=== PATIENT | female | born 1990 | race Caucasian/White ===

== ENCOUNTER 2022-01-04 05:04 | Emergency (ER) | payer SELFPAY ==
[2022-01-04 05:20] VITALS: BP 168/115
[2022-01-04] MEDS ORDERED: PERCOCET TABLET 5/325MG PO STA ×2 (05:22→05:23)
[2022-01-04] MEDS ORDERED: KEFLEX 500 MG PO ONE (05:22)
--- NOTE | 2022-01-04 05:22 | ERPHSYRPT ---
- History of Present Illness Time Seen by Provider: 01/04/22 05:15 Source: patient Exam Limitations: no limitations Physician History: This is a 31-year-old white female who dental pain in the left lower molars. Mastication worsens the pain. She has been feeling mild pain up until late last night and this morning when the pain worsened despite the use of ibuprofen. Patient states that she has symptoms unpleasant side effects with Augmentin. She can take Keflex without any problems. She has not contacted a dentist yet. Timing/Duration: gradual onset, weeks (Over 1 week) Severity: moderate ENT Location: dental Prearrival Treatment: over the counter meds Modifying Factors: Improves With: activity Associated Symptoms: tooth pain Allergies/Adverse Reactions: amoxicillin [From Augmentin] Allergy (Severe, Verified 01/04/22 05:21) Swelling clavulanic acid [From Augmentin] Allergy (Severe, Verified 01/04/22 05:21) Swelling Hx Tetanus, Diphtheria Vaccination/Date Given: No Hx Influenza Vaccination/Date Given: No Hx Pneumococcal Vaccination/Date Given: No Travel Risk - International Travel Have you traveled outside of the country in past 3 weeks: No - Coronavirus Screening Are you exhibiting any of the following symptoms?: No Close contact with a COVID-19 positive Pt in past 14-21 Days: No - Review of Systems Constitutional: No Symptoms Eyes: No Symptoms Ears, Nose, & Throat: Other (Dental pain left lower molars) Respiratory: No Symptoms Cardiac: No Symptoms Abdominal/Gastrointestinal: No Symptoms Genitourinary Symptoms: No Symptoms Musculoskeletal: No Symptoms Skin: No Symptoms Neurological: No Symptoms Psychological: No Symptoms Endocrine: No Symptoms Hematologic/Lymphatic: No Symptoms Immunological/Allergic: No Symptoms All Other Systems: Reviewed and Negative - Past Medical History Pertinent Past Medical History: No Respiratory History: Pneumonia - Past Surgical History Past Surgical History: No - Social History Smoking Status: Never smoker Exposure to second hand smoke: No Drug Use: none Patient Lives Alone: No - Nursing Vital Signs Nursing Vital Signs: Initial Vital Signs Temperature 98.7 F 01/04/22 05:10 Pulse Rate 80 01/04/22 05:10 Respiratory Rate 16 01/04/22 05:10 Blood Pressure 168/115 01/04/22 05:10 O2 Sat by Pulse Oximetry 94 L 01/04/22 05:10 Pain Scale Pain Intensity 8 - Physical Exam General Appearance: no apparent distress, alert, anxiety Eye Exam: bilateral eye: normal inspection, PERRL, EOMI Ear Exam: bilateral ear: auricle normal Nasal Exam: normal inspection Throat Exam: dental tenderness (Left lower molars with dental caries present), moist mucus membranes Neck Exam: normal inspection, non-tender, supple, full range of motion Cardiovascular/Respiratory Exam: chest non-tender, no respiratory distress Abdominal Exam: non-tender Neurologic Exam: alert, oriented x 3, cooperative, meat dresser II-XII nml as tested, normal mood/affect, nml cerebellar function, nml station & gait, sensation nml Skin Exam: normal color, warm, dry SpO2 Interpretation: normal O2 Delivery: Room Air - Course Nursing assessment & vital signs reviewed: Yes Ordered Tests: Medication Summary Discontinued Medications Generic Name Dose Route Start Last Admin Trade Name Freq PRN Reason Stop Dose Admin Cephalexin HCl 500 mg 01/04/22 05:22 Cephalexin Mh500 Mg Capsule PO 01/04/22 05:23 STAT ONE Oxycodone/Acetaminophen 1 tab 01/04/22 05:22 Oxycodone Hcl/Apap 5 Mg/325 Mg Tablet PO 01/04/22 05:23 STAT STA - Progress Progress: unchanged Counseled pt/family regarding: diagnosis, need for follow-up - Departure Departure Disposition: Home Clinical Impression: Pain due to dental caries Condition: Stable Critical Care Time: No Referrals: ARCHANA CARRERO [Primary Care Provider] - Follow up/PCP as directed Additional Instructions: Take the antibiotics as prescribed. Follow-up with a dentist today by phone to make arranges for follow-up appointment and definitive care. Continue ibuprofen 600 mg orally with food 3 times a day for the next 5 days. Prescriptions: Cephalexin Mh 500 mg [Keflex 500 mg] 500 mg PO TID #21 cap
[2022-01-04] MEDS ORDERED: PERCOCET TABLET 5/325MG ONE (05:24)
[2022-01-04] MEDS ORDERED: KEFLEX 500 MG ONE (05:24)
[2022-01-04 06:00] VITALS: PULSE 64; O2SAT 98
== END 2022-01-04 05:58 | disposition home or self-care (01) ==
LOC: ED 05:04
DX: K02.9 Dental caries, unspecified (principal); K08.89 Other specified disorders of teeth and supporting structures
CPT/HCPCS: 99282; A9270-GY

== ENCOUNTER 2024-08-15 17:58 | Observation (INO) | payer OTHER ==
--- NOTE | 2024-08-15 18:30 | ERPHSYRPT ---
- History of Present Illness Time Seen by Provider: 08/15/24 18:00 Historian: patient Exam Limitations: no limitations Patient Subjective Stated Complaint: pt c/o of upper abdominal pain just below bilateral breasts, N&V for 4 days Triage Nursing Assessment: Pt brought to the ER by her , hypertensive, rates pain as 3/10 at this time, pulses normal, skin flushed and warm, denies diarrhea, N&V, no SOB, doesn't appear to be in any distress Physician History: 34 years old female presented in the ER with complaints of bilateral upper abdominal/epigastric pain for the last 3 to 4 days with associated nausea and multiple episodes of nonprojectile, nonbilious vomiting without hematemesis. Patient reports pain gets worse with oral intake and is unable to hold much down. Does report history of GERD symptoms and takes Tums but not any prescription. Denies any chest pain palpitations or shortness of breath. No fever or chills reported. No diarrhea or constipation. Patient currently reports 6/10 intensity pain. Allergies/Adverse Reactions: No Known Drug Allergies Allergy (Verified 08/15/24 18:09) Home Medications: Fluoxetine HCl [Prozac] 40 mg PO DAILY 08/15/24 [History] Hx Tetanus, Diphtheria Vaccination/Date Given: No Hx Influenza Vaccination/Date Given: No Hx Pneumococcal Vaccination/Date Given: No Travel Risk - International Travel Have you traveled outside of the country in past 3 weeks: No - Emerging Infectious Disease Are you exhibiting symptoms associated with any current EIDs: Yes Symptoms: Vomitting - Review of Systems Constitutional: No Symptoms Ears, Nose, & Throat: No Symptoms Respiratory: No Symptoms Cardiac: No Symptoms Abdominal/Gastrointestinal: Abdominal Pain, Nausea, Vomiting Genitourinary Symptoms: No Symptoms Musculoskeletal: No Symptoms Skin: No Symptoms Neurological: No Symptoms Endocrine: No Symptoms Hematologic/Lymphatic: No Symptoms Immunological/Allergic: No Symptoms - Past Medical History Pertinent Past Medical History: Yes Neurological History: Migraines Respiratory History: Pneumonia - Past Surgical History Past Surgical History: No - Female History Hx Last Menstrual Period: 05/19/12 Hx Now: No ( vasectomy) - Social History Smoking Status: Never smoker Exposure to second hand smoke: No Drug Use: none - Social Determinants of Health Will the patient participate in the screening: Yes Do you worry about a steady place to live?: No Do you have any problems with any of the following?: No known problems In the past 12 months,have you had to go without utilities?: No Transportation Issues: No Has anyone in your support network made you feel unsafe?: No Have you or anyone in your house had to go w/o enough food: No - Nursing Vital Signs Nursing Vital Signs: Initial Vital Signs Pulse Rate 104 H 08/15/24 18:00 Respiratory Rate 18 08/15/24 18:00 Blood Pressure 189/131 08/15/24 18:00 O2 Sat by Pulse Oximetry 99 08/15/24 18:00 Pain Scale Pain Intensity 3 - Physical Exam General Appearance: no apparent distress Eye Exam: PERRL/EOMI Ears, Nose, Throat Exam: normal ENT inspection Neck Exam: normal inspection, full range of motion Respiratory Exam: normal breath sounds, lungs clear Cardiovascular Exam: regular rate/rhythm, normal heart sounds Gastrointestinal/Abdomen Exam: soft, normal bowel sounds, tenderness (Epigastric/periumbilical area), No guarding, No rebound Back Exam: normal inspection, normal range of motion Extremity Exam: normal inspection, normal range of motion Neurologic Exam: alert, oriented x 3, cooperative Skin Exam: normal color SpO2 Interpretation: normal SpO2: 97 O2 Delivery: Room Air - Course EKG Interpreted by Me: RATE (89), Sinus Rhythm, NORMAL AXIS, NORMAL INTERVALS, Non-specific ST Changes Ordered Tests: Active Orders 24 hr Category Date Time Status EKG-ER Only STAT Care 08/15/24 18:22 Active IV Insertion STAT Care 08/15/24 18:22 Active NPO (ED) STAT Care 08/15/24 18:22 Active Telemetry q4h Care 08/15/24 19:58 Active ABDOMEN AND PELVIS W/0 CONTRAS [CT] Stat Exams 08/15/24 18:23 Taken CBC W DIFF Stat Lab 08/15/24 18:15 Completed CMP Stat Lab 08/15/24 18:15 Completed CULTURE,URINE Stat Lab 08/15/24 19:42 Received Calcium, Ionized Stat Lab 08/15/24 19:32 Completed HCG QUALITATIVE, SERUM Stat Lab 08/15/24 18:15 Completed LIPASE Stat Lab 08/15/24 18:15 Completed Lactic Acid Stat Lab 08/15/24 18:22 Completed MAG [MAGNESIUM] Stat Lab 08/15/24 19:58 Completed TROPONIN Q4H Lab 08/15/24 18:15 Completed TROPONIN Q4H Lab 08/15/24 22:30 Ordered TROPONIN Q4H Lab 08/16/24 02:30 Ordered UA W/RFX UR CULTURE Stat Lab 08/15/24 19:42 Completed Transfer Order Routine Transfer 08/15/24 Ordered Medication Summary Generic Name Dose Route Start Last Admin Trade Name Yefri PRN Reason Stop Dose Admin Potassium Chloride 20 meq in 100 mls @ 50 mls/hr 08/15/24 19:58 08/15/24 20:00 Potassium Chloride 20 Meq In Water 100ml IV 08/15/24 21:57 50 mls/hr STAT ONE Administration Discontinued Medications Generic Name Dose Route Start Last Admin Trade Name Freq PRN Reason Stop Dose Admin Fentanyl Citrate 50 mcg 08/15/24 18:22 08/15/24 18:44 Fentanyl Citrate 100 Mcg/2 Ml* Vial IV 08/15/24 18:23 50 mcg STAT ONE Administration Fentanyl Citrate Confirm 08/15/24 18:38 Fentanyl Citrate 100 Mcg/2 Ml* Vial Administered 08/15/24 18:39 Dose 100 mcg .ROUTE .STK-MED ONE Sodium Chloride 1,000 mls @ 999 mls/hr 08/15/24 18:22 08/15/24 19:45 Sodium Chloride 0.9% 1000 Ml IV 08/15/24 19:22 Infused .Q1H1M STA Infusion Sodium Chloride Confirm 08/15/24 18:39 Sodium Chloride 0.9% 1000 Ml Administered 08/15/24 18:40 Dose 1,000 mls @ ud .ROUTE .STK-MED ONE Sodium Chloride 1,000 mls @ 999 mls/hr 08/15/24 19:30 08/15/24 20:01 Sodium Chloride 0.9% 1000 Ml IV 08/15/24 20:30 999 mls/hr .Q1H1M STA Administration Sodium Chloride Confirm 08/15/24 19:35 Sodium Chloride 0.9% 1000 Ml Administered 08/15/24 19:36 Dose 1,000 mls @ ud .ROUTE .STK-MED ONE Potassium Chloride Confirm 08/15/24 20:00 Potassium Chloride 20 Meq In Water 100ml Administered 08/15/24 20:01 Dose 100 mls @ ud IV .STK-MED ONE Ondansetron HCl 4 mg 08/15/24 18:22 08/15/24 18:43 Ondansetron Hcl 4 Mg/2 Ml Vial IV 08/15/24 18:23 4 mg STAT ONE Administration Ondansetron HCl Confirm 08/15/24 18:38 Ondansetron Hcl 4 Mg/2 Ml Vial Administered 08/15/24 18:39 Dose 4 mg .ROUTE .STK-MED ONE Pantoprazole Sodium 40 mg 08/15/24 18:22 08/15/24 18:43 Pantoprazole 40 Mg Vial IV 08/15/24 18:23 40 mg STAT ONE Administration Pantoprazole Sodium Confirm 08/15/24 18:38 Pantoprazole 40 Mg Vial Administered 08/15/24 18:39 Dose 40 mg IV .STK-MED ONE Lab/Rad Data: Laboratory Result Diagrams 08/15/24 18:15 08/15/24 18:15 Laboratory Results 08/15/24 08/15/24 08/15/24 Range/Units 19:58 19:42 19:32 WBC (3.98-10.04) x10^3/uL RBC (3.93-5.22) x10^6/uL Hgb (11.2-15.7) g/dL Hct (34.1-44.9) % MCV (79.4-94.8) fL MCH (25.6-32.2) pg MCHC (32.2-35.5) g/dL RDW (11.7-14.4) % Plt Count (182-369) x10^3/uL MPV (9.4-12.3) fL Gran % (34.0-71.1) % Immature Gran % (Auto) (0.001-0.429) % Nucleat RBC Rel Count (0.00-0.2) % Eos # (Auto) (0.04-0.36) x10^3/uL Immature Gran # (Auto) (0.001-0.031) x10^3u/L Absolute Lymphs (auto) (1.18-3.74) x10^3/uL Absolute Monos (auto) (0.24-0.86) x10^3/uL Absolute Nucleated RBC (0.00-0.012) x10^3u/L Lymphocytes % (19.3-51.7) % Monocytes % (4.7-12.5) % Eosinophils % (0.7-5.8) % Basophils % (0.1-1.2) % Absolute Granulocytes (1.56-6.13) x10^3/uL Basophils # (0.01-0.08) x10^3/uL Ionized Calcium 1.87 H* (1.12-1.32) mmol/L Sodium (135-145) mmol/L Potassium (3.5-5.1) mmol/L Chloride (98-107) mmol/L Carbon Dioxide (22-30) mmol/L Anion Gap (5-15) MEQ/L BUN (7-17) mg/dL Creatinine (0.52-1.04) mg/dL Estimated GFR ML/MIN Glucose (74-106) mg/dL Lactic Acid (0.4-2.0) Calcium (8.4-10.2) mg/dL Magnesium 1.7 (1.6-2.3) mg/dL Total Bilirubin (0.2-1.3) mg/dL AST (14-36) U/L ALT (0-35) U/L Alkaline Phosphatase (38-126) U/L Troponin I (0.000-0.033) ng/mL Serum Total Protein (6.3-8.2) g/dL Albumin (3.5-5.0) g/dL Lipase (23-300) U/L Serum HCG, Qual (NEGATIVE) Urine Color Yellow (Yellow) Urine Appearance Cloudy A (Clear) Urine pH 8.5 A (4.6-8.0) Ur Specific [place] 1.010 (1.005-1.030) Urine Protein Trace A (Negative) Urine Glucose (UA) Negative (Negative) mg/dL Urine Ketones Negative (Negative) Urine Blood Negative (Negative) Urine Nitrite Negative (Negative) Urine Bilirubin Negative (Negative) Urine Urobilinogen 0.2 (0.2) mg/dL Ur Leukocyte Esterase Moderate A (Negative) U Hyaline Cast (Auto) NONE SEEN (0-2) /LPF Urine Microscopic RBC NONE SEEN (0-5) /HPF Urine Microscopic WBC 3-5 (0-5) /HPF Ur Epithelial Cells Moderate A (None Seen) /HPF Urine Bacteria Few A (None Seen) /HPF Ur Yeast w Hyphae Few A (None Seen) /HPF Urine Culture Reflexed YES (NO) 05/15/25 05/15/25 05/15/25 Range/Units 18:22 18:15 18:15 WBC (3.98-10.04) x10^3/uL RBC (3.93-5.22) x10^6/uL Hgb (11.2-15.7) g/dL Hct (34.1-44.9) % MCV (79.4-94.8) fL MCH (25.6-32.2) pg MCHC (32.2-35.5) g/dL RDW (11.7-14.4) % Plt Count (182-369) x10^3/uL MPV (9.4-12.3) fL Gran % (34.0-71.1) % Immature Gran % (Auto) (0.001-0.429) % Nucleat RBC Rel Count (0.00-0.2) % Eos # (Auto) (0.04-0.36) x10^3/uL Immature Gran # (Auto) (0.001-0.031) x10^3u/L Absolute Lymphs (auto) (1.18-3.74) x10^3/uL Absolute Monos (auto) (0.24-0.86) x10^3/uL Absolute Nucleated RBC (0.00-0.012) x10^3u/L Lymphocytes % (19.3-51.7) % Monocytes % (4.7-12.5) % Eosinophils % (0.7-5.8) % Basophils % (0.1-1.2) % Absolute Granulocytes (1.56-6.13) x10^3/uL Basophils # (0.01-0.08) x10^3/uL Ionized Calcium (1.12-1.32) mmol/L Sodium (135-145) mmol/L Potassium (3.5-5.1) mmol/L Chloride (98-107) mmol/L Carbon Dioxide (22-30) mmol/L Anion Gap (5-15) MEQ/L BUN (7-17) mg/dL Creatinine (0.52-1.04) mg/dL Estimated GFR ML/MIN Glucose (74-106) mg/dL Lactic Acid 1.3 (0.4-2.0) Calcium (8.4-10.2) mg/dL Magnesium (1.6-2.3) mg/dL Total Bilirubin (0.2-1.3) mg/dL AST (14-36) U/L ALT (0-35) U/L Alkaline Phosphatase (38-126) U/L Troponin I 0.043 H* (0.000-0.033) ng/mL Serum Total Protein (6.3-8.2) g/dL Albumin (3.5-5.0) g/dL Lipase (23-300) U/L Serum HCG, Qual NEGATIVE (NEGATIVE) Urine Color (Yellow) Urine Appearance (Clear) Urine pH (4.6-8.0) Ur Specific [place] (1.005-1.030) Urine Protein (Negative) Urine Glucose (UA) (Negative) mg/dL Urine Ketones (Negative) Urine Blood (Negative) Urine Nitrite (Negative) Urine Bilirubin (Negative) Urine Urobilinogen (0.2) mg/dL Ur Leukocyte Esterase (Negative) U Hyaline Cast (Auto) (0-2) /LPF Urine Microscopic RBC (0-5) /HPF Urine Microscopic WBC (0-5) /HPF Ur Epithelial Cells (None Seen) /HPF Urine Bacteria (None Seen) /HPF Ur Yeast w Hyphae (None Seen) /HPF Urine Culture Reflexed (NO) 08/15/24 08/15/24 Range/Units 18:15 18:15 WBC 13.1 H (3.98-10.04) x10^3/uL RBC 4.23 (3.93-5.22) x10^6/uL Hgb 11.0 L (11.2-15.7) g/dL Hct 33.3 L (34.1-44.9) % MCV 78.7 L (79.4-94.8) fL MCH 26.0 (25.6-32.2) pg MCHC 33.0 (32.2-35.5) g/dL RDW 12.3 (11.7-14.4) % Plt Count 546 H (182-369) x10^3/uL MPV 8.9 L (9.4-12.3) fL Gran % 67.1 (34.0-71.1) % Immature Gran % (Auto) 0.4 (0.001-0.429) % Nucleat RBC Rel Count 0.0 (0.00-0.2) % Eos # (Auto) 0.23 (0.04-0.36) x10^3/uL Immature Gran # (Auto) 0.05 H (0.001-0.031) x10^3u/L Absolute Lymphs (auto) 2.37 (1.18-3.74) x10^3/uL Absolute Monos (auto) 1.59 H (0.24-0.86) x10^3/uL Absolute Nucleated RBC 0.00 (0.00-0.012) x10^3u/L Lymphocytes % 18.1 L (19.3-51.7) % Monocytes % 12.1 (4.7-12.5) % Eosinophils % 1.8 (0.7-5.8) % Basophils % 0.5 (0.1-1.2) % Absolute Granulocytes 8.79 H (1.56-6.13) x10^3/uL Basophils # 0.07 (0.01-0.08) x10^3/uL Ionized Calcium (1.12-1.32) mmol/L Sodium 135 (135-145) mmol/L Potassium 3.0 L* (3.5-5.1) mmol/L Chloride 95 L (98-107) mmol/L Carbon Dioxide 30 (22-30) mmol/L Anion Gap 13.6 (5-15) MEQ/L BUN 28 H (7-17) mg/dL Creatinine 2.55 H (0.52-1.04) mg/dL Estimated GFR 24.4 ML/MIN Glucose 117 H (74-106) mg/dL Lactic Acid (0.4-2.0) Calcium 15.3 H* (8.4-10.2) mg/dL Magnesium (1.6-2.3) mg/dL Total Bilirubin 0.20 (0.2-1.3) mg/dL AST 29 (14-36) U/L ALT 27 (0-35) U/L Alkaline Phosphatase 97 (38-126) U/L Troponin I (0.000-0.033) ng/mL Serum Total Protein 7.1 (6.3-8.2) g/dL Albumin 4.2 (3.5-5.0) g/dL Lipase 136 (23-300) U/L Serum HCG, Qual (NEGATIVE) Urine Color (Yellow) Urine Appearance (Clear) Urine pH (4.6-8.0) Ur Specific [place] (1.005-1.030) Urine Protein (Negative) Urine Glucose (UA) (Negative) mg/dL Urine Ketones (Negative) Urine Blood (Negative) Urine Nitrite (Negative) Urine Bilirubin (Negative) Urine Urobilinogen (0.2) mg/dL Ur Leukocyte Esterase (Negative) U Hyaline Cast (Auto) (0-2) /LPF Urine Microscopic RBC (0-5) /HPF Urine Microscopic WBC (0-5) /HPF Ur Epithelial Cells (None Seen) /HPF Urine Bacteria (None Seen) /HPF Ur Yeast w Hyphae (None Seen) /HPF Urine Culture Reflexed (NO) - Progress Progress: improved Progress Note: 08/15/24 20:24 Differential diagnoses include but not limited to: GERD with esophagitis, ACS, atypical chest pain, gastric ulcers, viscus perforation, intestinal obstruction, pancreatitis, cholecystitis, dehydration, renal failure, acute electrolyte derangement etc. 34 years old is evaluated in the ER for upper abdominal pain with nausea vomiting for last 4 days. Patient has history of GERD symptoms and takes Tums. She is given fluids and symptomatic treatment along with Protonix, on reevaluation she is feeling much better. No vomiting while in here. She has no chest pain palpitations or shortness of breath. EKG is sinus rhythm with no acute ST elevations. Workup showed white count of 13, chemistries with acute renal failure creatinine of 2.5, calcium of 15 and potassium of 3.0. I believe patient's hypercalcemia is secondary to excessive Tums intake which patient admits to taking to every 2 hour for quite some time and hypercalcemia with vomiting/dehydration is causing renal failure. She is started on potassium replacement as well. Normal lipase and liver enzymes. I do not think patient needs bisphosphonates for hypercalcemia and especially with renal failure and will give a trial of fluids first and I hope it will improve both hypercalcemia and kidney functions. PTH is pending, ionized calcium is 1.8. Initial troponin of 0.043, patient has no chest pain and I believe it is secondary to renal failure. CT abdomen pelvis without contrast showed hiatal hernia, small stones in the kidney but no ureteral stones, moderate fecal load and no other acute intra- abdominal pelvic findings. Discussed with Dr. Irving, reviewed history, workup, agreed with admission. Shared the results of workup with patient and family and plan of admission which they understand and agree. Complexity of problems addressed: High acuity Complexity of data reviewed/analyzed: High/extensive Risk of complication: Moderate to high Discussed with DrCheyanen: Other (Dr. Irving hospitalist) Counseled pt/family regarding: lab results, diagnosis, need for follow-up, rad results Medical Desision Making - Independent Historian Additional History obtained from: Spouse - Discussion of managment Care discussed with:: hospitalist Reviewed:: Test results Agreed on:: Treatment plan, decision to admit Will see patient: in hospital - Diagnostic Testing Diagnostic test were ordered, analyzed, and reviewed by me: Yes Radiological Interpretation: Reviewed by me, Teleradiologist Report - Risk of complications The pt has a mod risk of morbidity or mortality based on: Need for prescription drug management The pt has a high risk of morbidity or mortality based on: Drug therapy requiring intensive monitoring for toxicity, Decision regarding hospitilization or escalation of hosp level of care - Departure Departure Disposition: In-patient Admission Clinical Impression: Acute renal failure (ARF), Hypercalcemia, GERD with esophagitis, Hypokalemia, Elevated troponin, Nausea & vomiting Condition: Stable Critical Care Time: Yes Critical Care Time(excluding separately billable procedures): Critical 30-74 mins Referrals: ARCHANA CARRERO [Primary Care Provider, [facility]] - Follow up/PCP as directed
[2024-08-15 18:31] LABS: Absolute Neutrophil Ct (ANC) 8.79 x10^3/uL (1.56-6.13); BASOPHIL % 0.5 % (0.1-1.2); Basophil (Absolute #) 0.07 x10^3/uL (0.01-0.08); Eosinophil % 1.8 % (0.7-5.8); Eosinophil (Absolute #) 0.23 x10^3/uL (0.04-0.36); Hematocrit 33.3 % (34.1-44.9); IMMATURE GRAN # 0.05 x10^3u/L (0.001-0.031); IMMATURE GRAN % 0.4 % (0.001-0.429); Lymphocyte (Absolute #) 2.37 x10^3/uL (1.18-3.74); Lymphocytes % 18.1 % (19.3-51.7); Mean Cell Volume 78.7 fL (79.4-94.8); Mean Platelet Volume 8.9 fL (9.4-12.3); Monocyte (Absolute #) 1.59 x10^3/uL (0.24-0.86); Monocytes % 12.1 % (4.7-12.5); Neutrophil % 67.1 % (34.0-71.1); Platelet Count 546 x10^3/uL (182-369); Red Blood Count 4.23 x10^6/uL (3.93-5.22); Red Cell Distribution Width 12.3 % (11.7-14.4); White Blood Count 13.1 x10^3/uL (3.98-10.04)
[2024-08-15] MEDS ORDERED: SUBLIMAZE 100 MCG/2 ML ONE (18:38)
[2024-08-15] MEDS ORDERED: Zofran 4 MG/2 ML VIAL ONE (18:38)
[2024-08-15] MEDS ORDERED: PROTONIX 40 MG IV IV ONE (18:38)
[2024-08-15] MEDS ORDERED: Sodium Chloride 0.9% 1000 ML 1,000 ML ONE ×2 (18:39→19:35)
[2024-08-15] MEDS: Sodium Chloride 0.9% 1000 ML 1,000 ML IV STA ×2 (18:43→20:01)
[2024-08-15] MEDS: Zofran 4 MG/2 ML VIAL IV ONE (18:43)
[2024-08-15] MEDS: PROTONIX 40 MG IV IV ONE (18:43)
[2024-08-15] MEDS: SUBLIMAZE 100 MCG/2 ML IV ONE (18:44)
[2024-08-15 18:45] LABS: HCG SERUM TEST NEGATIVE (NEGATIVE)
[2024-08-15 18:47] LABS: ALBUMIN 4.2 g/dL (3.5-5.0); ANION GAP 13.6 MEQ/L (5-15); BILIRUBIN,TOTAL 0.2 mg/dL (0.2-1.3); Creatinine 1 2.55 mg/dL (0.52-1.04); EST GLOMERULAR FILTRATION RATE 24.4 ML/MIN; Total Protein 7.1 g/dL (6.3-8.2)
[2024-08-15 19:02] LABS: Calcium 15.3 mg/dL (8.4-10.2)
[2024-08-15] MEDS ORDERED: POTASSIUM CHLORIDE 20 mEq IN WATER 100ML 100 ML IV ONE (20:00)
[2024-08-15] MEDS: POTASSIUM CHLORIDE 20 mEq IN WATER 100ML 20 MEQ/100 ML BAG IV ONE (20:00)
[2024-08-15 20:11] LABS: Appearance Cloudy (Clear); Bacteria Few /HPF (None Seen); Bilirubin Negative (Negative); Blood Negative (Negative); Epithelial Cells Moderate /HPF (None Seen); Glucose, Urine Negative (Negative); Hyaline Casts NONE SEEN /LPF (0-2); Hyphae Yeast Few /HPF (None Seen); Ketones Negative (Negative); Leukocyte Esterase Moderate (Negative); Nitrite Negative (Negative); Ph 8.5 (4.6-8.0); Protein,Urine Dip Trace (Negative); RBC NONE SEEN /HPF (0-5); Urobilinogen 0.2 mg/dL (0.2)
--- NOTE | 2024-08-15 20:57 | PCM.HP ---
History of Present Illness - Chief Complaint Chief Complaint: abdominal pain Date: 08/15/24 History of Present Illness: Ms. CORONA is a 34 year old female with a past medical history significant for depression and migraine headaches taking about 8 ibuprofen daily who presented to the hospital with complaints of abdominal pain for the past couple days below her diaphragm. She thought it was acid reflux and started taking about 12-14 TUMS daily. Her symptoms worsened and she was unable to keep anything down, developing some nausea and vomiting. Upon arrival, she was found to have a calcium of 15.3, bicarb 30 and creatinine 2.6. No previous history of CKD or hypercalcemia. No fever/chills, though her WBC count was slightly elevated. She is seen and evaluated in the ER where she is resting in bed, awake/alert, non- toxic. No chest pain or shortness of breath. No dysuria, hematuria or foamy/frothy urine. - Review of Systems Constitutional: No Fever, No Chills Eyes: No Double Vision Ears, Nose, & Throat: No Sinus Drainage Respiratory: No Cough, No Short Of Breath Cardiac: No Chest Pain, No Edema, No Palpitations Abdominal/Gastrointestinal: Abdominal Pain, Nausea, Vomiting Genitourinary Symptoms: No Dysuria, No Frequency, No Hematuria Musculoskeletal: No Arthralgias Skin: No Rash Neurological: Headache Psychological: Emotional Lability Endocrine: No Polyuria, No Polydipsia Hematologic/Lymphatic: No Easy Bleeding Medications & Allergies Home Medications: Home Medication List Fluoxetine HCl [Prozac] 40 mg PO DAILY 08/15/24 [History Confirmed 08/15/24] Allergies/Adverse Reactions: Allergies Allergy/AdvReac Type Severity Reaction Status Date / Time No Known Drug Allergies Allergy Verified 08/15/24 18:09 - Past Medical History Past Medical History: Yes Neurological History: Migraines Respiratory History: Pneumonia - Female History Hx Last Menstrual Period: 05/19/12 Are you now?: No ( vasectomy) - Past Surgical History Past Surgical History: No - Social History Smoking Status: Never smoker Exposure to second hand smoke: No Alcohol: Occasionally Drug Use: none - Social Determinants of Health Will the patient participate in the screening: Yes Do you worry about a steady place to live?: No Do you have any problems with any of the following?: No known problems In the past 12 months,have you had to go without utilities?: No Have you or anyone in your house had to go without enough: No Transportation Issues: No Has anyone in your support network made you feel unsafe?: No - Physical Exam Vital Signs: Vital Signs - 24 hr Temp Pulse Resp BP BP Pulse Ox 08/15/24 20:46 91 H 17 176/121 97 08/15/24 20:31 97 08/15/24 20:31 101 H 17 174/145 96 08/15/24 20:15 89 15 163/114 95 08/15/24 20:00 88 14 168/114 97 08/15/24 19:45 87 17 181/129 97 08/15/24 19:40 90 20 08/15/24 19:35 94 H 17 08/15/24 19:16 86 18 161/108 97 08/15/24 19:01 87 18 189/127 97 08/15/24 18:45 92 H 25 H 151/114 98 08/15/24 18:30 97 H 25 H 168/112 94 L 08/15/24 18:15 90 15 168/124 08/15/24 18:02 88 21 166/117 99 08/15/24 18:01 98.9 F 99 H 19 166/117 97 08/15/24 18:00 103 H 25 H 189/131 98 General Appearance: no apparent distress Neurologic Exam: alert, oriented x 3 Ears, Nose, Throat Exam: dry mucous membranes Neck Exam: supple Respiratory Exam: No respiratory distress Cardiovascular Exam: regular rate/rhythm Gastrointestinal/Abdomen Exam: soft Extremity Exam: No pedal edema, No swelling Skin Exam: normal color, No rash Results - Labs Lab/Micro Results: Lab Results-Last 24 Hours 08/15/24 08/15/24 08/15/24 Range/Units 18:15 18:15 18:15 WBC 13.1 H (3.98-10.04) x10^3/uL RBC 4.23 (3.93-5.22) x10^6/uL Hgb 11.0 L (11.2-15.7) g/dL Hct 33.3 L (34.1-44.9) % MCV 78.7 L (79.4-94.8) fL MCH 26.0 (25.6-32.2) pg MCHC 33.0 (32.2-35.5) g/dL RDW 12.3 (11.7-14.4) % Plt Count 546 H (182-369) x10^3/uL MPV 8.9 L (9.4-12.3) fL Gran % 67.1 (34.0-71.1) % Immature Gran % (Auto) 0.4 (0.001-0.429) % Nucleat RBC Rel Count 0.0 (0.00-0.2) % Eos # (Auto) 0.23 (0.04-0.36) x10^3/uL Immature Gran # (Auto) 0.05 H (0.001-0.031) x10^3u/L Absolute Lymphs (auto) 2.37 (1.18-3.74) x10^3/uL Absolute Monos (auto) 1.59 H (0.24-0.86) x10^3/uL Absolute Nucleated RBC 0.00 (0.00-0.012) x10^3u/L Lymphocytes % 18.1 L (19.3-51.7) % Monocytes % 12.1 (4.7-12.5) % Eosinophils % 1.8 (0.7-5.8) % Basophils % 0.5 (0.1-1.2) % Absolute Granulocytes 8.79 H (1.56-6.13) x10^3/uL Basophils # 0.07 (0.01-0.08) x10^3/uL Ionized Calcium (1.12-1.32) mmol/L Sodium 135 (135-145) mmol/L Potassium 3.0 L* (3.5-5.1) mmol/L Chloride 95 L (98-107) mmol/L Carbon Dioxide 30 (22-30) mmol/L Anion Gap 13.6 (5-15) MEQ/L BUN 28 H (7-17) mg/dL Creatinine 2.55 H (0.52-1.04) mg/dL Estimated GFR 24.4 ML/MIN Glucose 117 H (74-106) mg/dL Lactic Acid (0.4-2.0) Calcium 15.3 H* (8.4-10.2) mg/dL Magnesium (1.6-2.3) mg/dL Total Bilirubin 0.20 (0.2-1.3) mg/dL AST 29 (14-36) U/L ALT 27 (0-35) U/L Alkaline Phosphatase 97 (38-126) U/L Troponin I 0.043 H* (0.000-0.033) ng/mL Serum Total Protein 7.1 (6.3-8.2) g/dL Albumin 4.2 (3.5-5.0) g/dL Lipase 136 (23-300) U/L Serum HCG, Qual (NEGATIVE) Urine Color (Yellow) Urine Appearance (Clear) Urine pH (4.6-8.0) Ur Specific [place] (1.005-1.030) Urine Protein (Negative) Urine Glucose (UA) (Negative) mg/dL Urine Ketones (Negative) Urine Blood (Negative) Urine Nitrite (Negative) Urine Bilirubin (Negative) Urine Urobilinogen (0.2) mg/dL Ur Leukocyte Esterase (Negative) U Hyaline Cast (Auto) (0-2) /LPF Urine Microscopic RBC (0-5) /HPF Urine Microscopic WBC (0-5) /HPF Ur Epithelial Cells (None Seen) /HPF Urine Bacteria (None Seen) /HPF Ur Yeast w Hyphae (None Seen) /HPF Urine Culture Reflexed (NO) 08/15/24 08/15/24 08/15/24 Range/Units 18:15 18:22 19:32 WBC (3.98-10.04) x10^3/uL RBC (3.93-5.22) x10^6/uL Hgb (11.2-15.7) g/dL Hct (34.1-44.9) % MCV (79.4-94.8) fL MCH (25.6-32.2) pg MCHC (32.2-35.5) g/dL RDW (11.7-14.4) % Plt Count (182-369) x10^3/uL MPV (9.4-12.3) fL Gran % (34.0-71.1) % Immature Gran % (Auto) (0.001-0.429) % Nucleat RBC Rel Count (0.00-0.2) % Eos # (Auto) (0.04-0.36) x10^3/uL Immature Gran # (Auto) (0.001-0.031) x10^3u/L Absolute Lymphs (auto) (1.18-3.74) x10^3/uL Absolute Monos (auto) (0.24-0.86) x10^3/uL Absolute Nucleated RBC (0.00-0.012) x10^3u/L Lymphocytes % (19.3-51.7) % Monocytes % (4.7-12.5) % Eosinophils % (0.7-5.8) % Basophils % (0.1-1.2) % Absolute Granulocytes (1.56-6.13) x10^3/uL Basophils # (0.01-0.08) x10^3/uL Ionized Calcium 1.87 H* (1.12-1.32) mmol/L Sodium (135-145) mmol/L Potassium (3.5-5.1) mmol/L Chloride (98-107) mmol/L Carbon Dioxide (22-30) mmol/L Anion Gap (5-15) MEQ/L BUN (7-17) mg/dL Creatinine (0.52-1.04) mg/dL Estimated GFR ML/MIN Glucose (74-106) mg/dL Lactic Acid 1.3 (0.4-2.0) Calcium (8.4-10.2) mg/dL Magnesium (1.6-2.3) mg/dL Total Bilirubin (0.2-1.3) mg/dL AST (14-36) U/L ALT (0-35) U/L Alkaline Phosphatase (38-126) U/L Troponin I (0.000-0.033) ng/mL Serum Total Protein (6.3-8.2) g/dL Albumin (3.5-5.0) g/dL Lipase (23-300) U/L Serum HCG, Qual NEGATIVE (NEGATIVE) Urine Color (Yellow) Urine Appearance (Clear) Urine pH (4.6-8.0) Ur Specific [place] (1.005-1.030) Urine Protein (Negative) Urine Glucose (UA) (Negative) mg/dL Urine Ketones (Negative) Urine Blood (Negative) Urine Nitrite (Negative) Urine Bilirubin (Negative) Urine Urobilinogen (0.2) mg/dL Ur Leukocyte Esterase (Negative) U Hyaline Cast (Auto) (0-2) /LPF Urine Microscopic RBC (0-5) /HPF Urine Microscopic WBC (0-5) /HPF Ur Epithelial Cells (None Seen) /HPF Urine Bacteria (None Seen) /HPF Ur Yeast w Hyphae (None Seen) /HPF Urine Culture Reflexed (NO) 08/15/24 08/15/24 Range/Units 19:42 19:58 WBC (3.98-10.04) x10^3/uL RBC (3.93-5.22) x10^6/uL Hgb (11.2-15.7) g/dL Hct (34.1-44.9) % MCV (79.4-94.8) fL MCH (25.6-32.2) pg MCHC (32.2-35.5) g/dL RDW (11.7-14.4) % Plt Count (182-369) x10^3/uL MPV (9.4-12.3) fL Gran % (34.0-71.1) % Immature Gran % (Auto) (0.001-0.429) % Nucleat RBC Rel Count (0.00-0.2) % Eos # (Auto) (0.04-0.36) x10^3/uL Immature Gran # (Auto) (0.001-0.031) x10^3u/L Absolute Lymphs (auto) (1.18-3.74) x10^3/uL Absolute Monos (auto) (0.24-0.86) x10^3/uL Absolute Nucleated RBC (0.00-0.012) x10^3u/L Lymphocytes % (19.3-51.7) % Monocytes % (4.7-12.5) % Eosinophils % (0.7-5.8) % Basophils % (0.1-1.2) % Absolute Granulocytes (1.56-6.13) x10^3/uL Basophils # (0.01-0.08) x10^3/uL Ionized Calcium (1.12-1.32) mmol/L Sodium (135-145) mmol/L Potassium (3.5-5.1) mmol/L Chloride (98-107) mmol/L Carbon Dioxide (22-30) mmol/L Anion Gap (5-15) MEQ/L BUN (7-17) mg/dL Creatinine (0.52-1.04) mg/dL Estimated GFR ML/MIN Glucose (74-106) mg/dL Lactic Acid (0.4-2.0) Calcium (8.4-10.2) mg/dL Magnesium 1.7 (1.6-2.3) mg/dL Total Bilirubin (0.2-1.3) mg/dL AST (14-36) U/L ALT (0-35) U/L Alkaline Phosphatase (38-126) U/L Troponin I (0.000-0.033) ng/mL Serum Total Protein (6.3-8.2) g/dL Albumin (3.5-5.0) g/dL Lipase (23-300) U/L Serum HCG, Qual (NEGATIVE) Urine Color Yellow (Yellow) Urine Appearance Cloudy A (Clear) Urine pH 8.5 A (4.6-8.0) Ur Specific [place] 1.010 (1.005-1.030) Urine Protein Trace A (Negative) Urine Glucose (UA) Negative (Negative) mg/dL Urine Ketones Negative (Negative) Urine Blood Negative (Negative) Urine Nitrite Negative (Negative) Urine Bilirubin Negative (Negative) Urine Urobilinogen 0.2 (0.2) mg/dL Ur Leukocyte Esterase Moderate A (Negative) U Hyaline Cast (Auto) NONE SEEN (0-2) /LPF Urine Microscopic RBC NONE SEEN (0-5) /HPF Urine Microscopic WBC 3-5 (0-5) /HPF Ur Epithelial Cells Moderate A (None Seen) /HPF Urine Bacteria Few A (None Seen) /HPF Ur Yeast w Hyphae Few A (None Seen) /HPF Urine Culture Reflexed YES (NO) - Radiology Impressions Radiology Exams & Impressions: Radiology Procedures Category Date Time Status ABDOMEN AND PELVIS W/0 CONTRAS [CT] Stat Exams 08/15/24 18:23 Taken Assessment/Plan (1) Acute renal failure (ARF) Current Visit: Yes Status: Acute Assessment & Plan: OVI likely secondary to combination of hypercalcemia and NSAIDs, no sign of obstruction, need to rule out myeloma/amyloidosis 1. Admit to hospital 2. IVFs 3. Hold Ibuprofen/TUMS 4. Check SPEP/UPEP 5. DVT/GI prophylaxis 6. Follow I/Os 7. Watch electrolytes, creatinine closely - no need for dialysis (2) Hypercalcemia Current Visit: Yes Status: Acute Assessment & Plan: Likely from exogenous intake of TUMS but need to rule out parathyroid adenoma or malignancy 1. IVFs for now, can defer calcitonin/bisphosphate 2. Check SPEP/UPEP, PTH, vit D levels 3. Monitor calcium, ionized level closely Code(s): E83.52 - HYPERCALCEMIA (3) UTI (urinary tract infection) Current Visit: Yes Status: Acute Assessment & Plan: Likely mild UTI with elevated WBC 1. Empiric antibiotics 2. Check urine culture 3. Trend WBC Code(s): N39.0 - URINARY TRACT INFECTION, SITE NOT SPECIFIED (4) Hypokalemia Current Visit: Yes Status: Acute Assessment & Plan: Likely from GI losses 1. Replete K, check Mg 2. Encourage PO intake Code(s): E87.6 - HYPOKALEMIA (5) Elevated troponin Current Visit: Yes Status: Acute Assessment & Plan: Unclear etiology, doubt cardiac etiology 1. Monitor on telemetry 2. Trend troponin Code(s): R79.89 - OTHER SPECIFIED ABNORMAL FINDINGS OF BLOOD CHEMISTRY (6) GERD with esophagitis Current Visit: Yes Status: Acute Assessment & Plan: Likely GERD with GI symptoms 1. Start PPI 2. Encourage PO intake 3. Pain control Code(s): K21.00 - GASTRO-ESOPHAGEAL REFLUX DIS WITH ESOPHAGITIS, WITHOUT BLEED Telemedicine Encounter - Telemedicine Encounter Telemedicine Encounter: "The entirety of this encounter was performed via Telemedicine" This visit was performed using real-time audio and video connection between my location and thepatients locationwith the assistance of a surrogateat the patients location. Written or verbal consent was obtained from the patient/ guardian to perform this visit using[facility] technology. Any patient questions regarding the telemedicine interaction were answered.
[2024-08-15 22:50] LABS: CREATININE,URINE RANDOM 68.5 MG/DL
[2024-08-15] MEDS: Sodium Chloride 0.9% W/ 20 mEq KCl/LITER 1,000 ML IV SCH (22:56)
[2024-08-15] MEDS: TYLENOL 325 MG PO PRN (22:56)
[2024-08-16 03:22] LABS: ALBUMIN 3.4 g/dL (3.5-5.0); ANION GAP 9.7 MEQ/L (5-15); Creatinine 1 2.14 mg/dL (0.52-1.04); EST GLOMERULAR FILTRATION RATE 30.1 ML/MIN; MAGNESIUM 1.6 mg/dL (1.6-2.3); PHOSPHOROUS 3.2 mg/dL (2.5-4.5); Potassium 3.3 mmol/L (3.5-5.1)
[2024-08-16 03:28] LABS: Calcium 12.4 mg/dL (8.4-10.2)
--- NOTE | 2024-08-16 05:17 | PCM.NOTE ---
Date and Time: 08/16/24509 Subjective Assessment: Ms. Verma is a 34-year-old female with a history of depression and migraine headaches (self-medicating with 8 ibuprofen daily) presented with several days of epigastric abdominal pain, nausea, and vomiting. She endorsed excessive antacid use (12-14 TUMS daily) for presumed acid reflux. Initial labs revealed hypercalcemia (Ca 15.3), acute kidney injury (Cr 2.6), elevated bicarbonate (30), mild leukocytosis (WBC 13.1), hypokalemia, and elevated troponin of unclear etiology. No prior CKD or hypercalcemia history. 08/16/24: The patient was evaluated at the bedside and reports significant clinical improvement today. She denies any ongoing nausea or vomiting and is tolerating an oral diet without difficulty. The patient relayed that her prior symptoms of reflux, nausea, and vomiting began earlier in the week, which she attributed to a gastrointestinal illness. A recent CT scan of the abdomen revealed no acute intra-abdominal pathology. Laboratory studies demonstrate improving renal function and down-trending calcium levels. The current plan is to continue intravenous fluid therapy with close monitoring of her clinical status and laboratory parameters. - Review of Systems Constitutional: No Symptoms Eyes: No Symptoms Ears, Nose, & Throat: No Symptoms Respiratory: No Symptoms Cardiac: No Symptoms Abdominal/Gastrointestinal: No Symptoms Genitourinary Symptoms: No Symptoms Musculoskeletal: No Symptoms Skin: No Symptoms Neurological: No Symptoms Psychological: No Symptoms Endocrine: No Symptoms Hematologic/Lymphatic: No Symptoms Immunological/Allergic: No Symptoms Objective Exam General Appearance: no apparent distress Neurologic Exam: alert, oriented x 3, cooperative Skin Exam: normal color Eye Exam: PERRL Ears, Nose, Throat Exam: normal ENT inspection Neck Exam: normal inspection Respiratory Exam: normal breath sounds, lungs clear Cardiovascular Exam: regular rate/rhythm, normal heart sounds Gastrointestinal/Abdomen Exam: soft, normal bowel sounds Extremity Exam: normal inspection Back Exam: normal inspection Pelvic Exam: deferred Rectal Exam: deferred Objective Data Vital Signs: Vital Signs - 24 hr Temp Pulse Resp BP BP Pulse Ox 08/16/24 04:00 70 18 08/16/24 00:00 149/95 08/15/24 21:12 97.6 F 93 H 18 201/100 94 L 08/15/24 20:46 91 H 17 176/121 97 08/15/24 20:31 97 08/15/24 20:31 101 H 17 174/145 96 08/15/24 20:15 89 15 163/114 95 08/15/24 20:00 88 14 168/114 97 08/15/24 19:45 87 17 181/129 97 08/15/24 19:40 90 20 08/15/24 19:35 94 H 17 08/15/24 19:16 86 18 161/108 97 08/15/24 19:01 87 18 189/127 97 08/15/24 18:45 92 H 25 H 151/114 98 08/15/24 18:30 97 H 25 H 168/112 94 L 08/15/24 18:15 90 15 168/124 08/15/24 18:02 88 21 166/117 99 08/15/24 18:01 98.9 F 99 H 19 166/117 97 08/15/24 18:00 103 H 25 H 189/131 98 Pain Assessment - Last Documented Pain Intensity 6 Pain Scale Used 0-10 Pain Scale Intake and Output: Intake & Output 08/13/24 08/14/24 08/15/24 08/16/24 11:59 11:59 11:59 11:59 Intake Total 60 Output Total 1150 Balance -1090 Weight 92.9 kg Lab Results: Lab Results-Last 24 Hours 08/15/24 08/15/24 08/15/24 Range/Units 18:15 18:15 18:15 WBC 13.1 H (3.98-10.04) x10^3/uL RBC 4.23 (3.93-5.22) x10^6/uL Hgb 11.0 L (11.2-15.7) g/dL Hct 33.3 L (34.1-44.9) % MCV 78.7 L (79.4-94.8) fL MCH 26.0 (25.6-32.2) pg MCHC 33.0 (32.2-35.5) g/dL RDW 12.3 (11.7-14.4) % Plt Count 546 H (182-369) x10^3/uL MPV 8.9 L (9.4-12.3) fL Gran % 67.1 (34.0-71.1) % Immature Gran % (Auto) 0.4 (0.001-0.429) % Nucleat RBC Rel Count 0.0 (0.00-0.2) % Eos # (Auto) 0.23 (0.04-0.36) x10^3/uL Immature Gran # (Auto) 0.05 H (0.001-0.031) x10^3u/L Absolute Lymphs (auto) 2.37 (1.18-3.74) x10^3/uL Absolute Monos (auto) 1.59 H (0.24-0.86) x10^3/uL Absolute Nucleated RBC 0.00 (0.00-0.012) x10^3u/L Lymphocytes % 18.1 L (19.3-51.7) % Monocytes % 12.1 (4.7-12.5) % Eosinophils % 1.8 (0.7-5.8) % Basophils % 0.5 (0.1-1.2) % Absolute Granulocytes 8.79 H (1.56-6.13) x10^3/uL Basophils # 0.07 (0.01-0.08) x10^3/uL Ionized Calcium (1.12-1.32) mmol/L Sodium 135 (135-145) mmol/L Potassium 3.0 L* (3.5-5.1) mmol/L Chloride 95 L (98-107) mmol/L Carbon Dioxide 30 (22-30) mmol/L Anion Gap 13.6 (5-15) MEQ/L BUN 28 H (7-17) mg/dL Creatinine 2.55 H (0.52-1.04) mg/dL Estimated GFR 24.4 ML/MIN Glucose 117 H (74-106) mg/dL Lactic Acid (0.4-2.0) Calcium 15.3 H* (8.4-10.2) mg/dL Phosphorus (2.5-4.5) mg/dL Magnesium (1.6-2.3) mg/dL Total Bilirubin 0.20 (0.2-1.3) mg/dL AST 29 (14-36) U/L ALT 27 (0-35) U/L Alkaline Phosphatase 97 (38-126) U/L Troponin I 0.043 H* (0.000-0.033) ng/mL Serum Total Protein 7.1 (6.3-8.2) g/dL Albumin 4.2 (3.5-5.0) g/dL Lipase 136 (23-300) U/L Serum HCG, Qual (NEGATIVE) Urine Color (Yellow) Urine Appearance (Clear) Urine pH (4.6-8.0) Ur Specific [place] (1.005-1.030) Urine Protein (Negative) Urine Glucose (UA) (Negative) mg/dL Urine Ketones (Negative) Urine Blood (Negative) Urine Nitrite (Negative) Urine Bilirubin (Negative) Urine Urobilinogen (0.2) mg/dL Ur Leukocyte Esterase (Negative) U Hyaline Cast (Auto) (0-2) /LPF Urine Microscopic RBC (0-5) /HPF Urine Microscopic WBC (0-5) /HPF Ur Epithelial Cells (None Seen) /HPF Urine Bacteria (None Seen) /HPF Ur Yeast w Hyphae (None Seen) /HPF Urine Culture Reflexed (NO) Ur Random Creatinine MG/DL U Random Total Protein (0-12) mg/dL Urine Sodium (30-90) mmol/L 08/15/24 08/15/24 08/15/24 Range/Units 18:15 18:22 19:32 WBC (3.98-10.04) x10^3/uL RBC (3.93-5.22) x10^6/uL Hgb (11.2-15.7) g/dL Hct (34.1-44.9) % MCV (79.4-94.8) fL MCH (25.6-32.2) pg MCHC (32.2-35.5) g/dL RDW (11.7-14.4) % Plt Count (182-369) x10^3/uL MPV (9.4-12.3) fL Gran % (34.0-71.1) % Immature Gran % (Auto) (0.001-0.429) % Nucleat RBC Rel Count (0.00-0.2) % Eos # (Auto) (0.04-0.36) x10^3/uL Immature Gran # (Auto) (0.001-0.031) x10^3u/L Absolute Lymphs (auto) (1.18-3.74) x10^3/uL Absolute Monos (auto) (0.24-0.86) x10^3/uL Absolute Nucleated RBC (0.00-0.012) x10^3u/L Lymphocytes % (19.3-51.7) % Monocytes % (4.7-12.5) % Eosinophils % (0.7-5.8) % Basophils % (0.1-1.2) % Absolute Granulocytes (1.56-6.13) x10^3/uL Basophils # (0.01-0.08) x10^3/uL Ionized Calcium 1.87 H* (1.12-1.32) mmol/L Sodium (135-145) mmol/L Potassium (3.5-5.1) mmol/L Chloride (98-107) mmol/L Carbon Dioxide (22-30) mmol/L Anion Gap (5-15) MEQ/L BUN (7-17) mg/dL Creatinine (0.52-1.04) mg/dL Estimated GFR ML/MIN Glucose (74-106) mg/dL Lactic Acid 1.3 (0.4-2.0) Calcium (8.4-10.2) mg/dL Phosphorus (2.5-4.5) mg/dL Magnesium (1.6-2.3) mg/dL Total Bilirubin (0.2-1.3) mg/dL AST (14-36) U/L ALT (0-35) U/L Alkaline Phosphatase (38-126) U/L Troponin I (0.000-0.033) ng/mL Serum Total Protein (6.3-8.2) g/dL Albumin (3.5-5.0) g/dL Lipase (23-300) U/L Serum HCG, Qual NEGATIVE (NEGATIVE) Urine Color (Yellow) Urine Appearance (Clear) Urine pH (4.6-8.0) Ur Specific [place] (1.005-1.030) Urine Protein (Negative) Urine Glucose (UA) (Negative) mg/dL Urine Ketones (Negative) Urine Blood (Negative) Urine Nitrite (Negative) Urine Bilirubin (Negative) Urine Urobilinogen (0.2) mg/dL Ur Leukocyte Esterase (Negative) U Hyaline Cast (Auto) (0-2) /LPF Urine Microscopic RBC (0-5) /HPF Urine Microscopic WBC (0-5) /HPF Ur Epithelial Cells (None Seen) /HPF Urine Bacteria (None Seen) /HPF Ur Yeast w Hyphae (None Seen) /HPF Urine Culture Reflexed (NO) Ur Random Creatinine MG/DL U Random Total Protein (0-12) mg/dL Urine Sodium (30-90) mmol/L 08/15/24 08/15/24 08/15/24 Range/Units 19:42 19:42 19:58 WBC (3.98-10.04) x10^3/uL RBC (3.93-5.22) x10^6/uL Hgb (11.2-15.7) g/dL Hct (34.1-44.9) % MCV (79.4-94.8) fL MCH (25.6-32.2) pg MCHC (32.2-35.5) g/dL RDW (11.7-14.4) % Plt Count (182-369) x10^3/uL MPV (9.4-12.3) fL Gran % (34.0-71.1) % Immature Gran % (Auto) (0.001-0.429) % Nucleat RBC Rel Count (0.00-0.2) % Eos # (Auto) (0.04-0.36) x10^3/uL Immature Gran # (Auto) (0.001-0.031) x10^3u/L Absolute Lymphs (auto) (1.18-3.74) x10^3/uL Absolute Monos (auto) (0.24-0.86) x10^3/uL Absolute Nucleated RBC (0.00-0.012) x10^3u/L Lymphocytes % (19.3-51.7) % Monocytes % (4.7-12.5) % Eosinophils % (0.7-5.8) % Basophils % (0.1-1.2) % Absolute Granulocytes (1.56-6.13) x10^3/uL Basophils # (0.01-0.08) x10^3/uL Ionized Calcium (1.12-1.32) mmol/L Sodium (135-145) mmol/L Potassium (3.5-5.1) mmol/L Chloride (98-107) mmol/L Carbon Dioxide (22-30) mmol/L Anion Gap (5-15) MEQ/L BUN (7-17) mg/dL Creatinine (0.52-1.04) mg/dL Estimated GFR ML/MIN Glucose (74-106) mg/dL Lactic Acid (0.4-2.0) Calcium (8.4-10.2) mg/dL Phosphorus (2.5-4.5) mg/dL Magnesium 1.7 (1.6-2.3) mg/dL Total Bilirubin (0.2-1.3) mg/dL AST (14-36) U/L ALT (0-35) U/L Alkaline Phosphatase (38-126) U/L Troponin I (0.000-0.033) ng/mL Serum Total Protein (6.3-8.2) g/dL Albumin (3.5-5.0) g/dL Lipase (23-300) U/L Serum HCG, Qual (NEGATIVE) Urine Color Yellow (Yellow) Urine Appearance Cloudy A (Clear) Urine pH 8.5 A (4.6-8.0) Ur Specific [place] 1.010 (1.005-1.030) Urine Protein Trace A (Negative) Urine Glucose (UA) Negative (Negative) mg/dL Urine Ketones Negative (Negative) Urine Blood Negative (Negative) Urine Nitrite Negative (Negative) Urine Bilirubin Negative (Negative) Urine Urobilinogen 0.2 (0.2) mg/dL Ur Leukocyte Esterase Moderate A (Negative) U Hyaline Cast (Auto) NONE SEEN (0-2) /LPF Urine Microscopic RBC NONE SEEN (0-5) /HPF Urine Microscopic WBC 3-5 (0-5) /HPF Ur Epithelial Cells Moderate A (None Seen) /HPF Urine Bacteria Few A (None Seen) /HPF Ur Yeast w Hyphae Few A (None Seen) /HPF Urine Culture Reflexed YES (NO) Ur Random Creatinine 68.5 MG/DL U Random Total Protein 29 H (0-12) mg/dL Urine Sodium 68 (30-90) mmol/L 08/15/24 08/16/24 08/16/24 Range/Units 22:35 02:55 02:55 WBC (3.98-10.04) x10^3/uL RBC (3.93-5.22) x10^6/uL Hgb (11.2-15.7) g/dL Hct (34.1-44.9) % MCV (79.4-94.8) fL MCH (25.6-32.2) pg MCHC (32.2-35.5) g/dL RDW (11.7-14.4) % Plt Count (182-369) x10^3/uL MPV (9.4-12.3) fL Gran % (34.0-71.1) % Immature Gran % (Auto) (0.001-0.429) % Nucleat RBC Rel Count (0.00-0.2) % Eos # (Auto) (0.04-0.36) x10^3/uL Immature Gran # (Auto) (0.001-0.031) x10^3u/L Absolute Lymphs (auto) (1.18-3.74) x10^3/uL Absolute Monos (auto) (0.24-0.86) x10^3/uL Absolute Nucleated RBC (0.00-0.012) x10^3u/L Lymphocytes % (19.3-51.7) % Monocytes % (4.7-12.5) % Eosinophils % (0.7-5.8) % Basophils % (0.1-1.2) % Absolute Granulocytes (1.56-6.13) x10^3/uL Basophils # (0.01-0.08) x10^3/uL Ionized Calcium (1.12-1.32) mmol/L Sodium 137 (135-145) mmol/L Potassium 3.3 L (3.5-5.1) mmol/L Chloride 103 (98-107) mmol/L Carbon Dioxide 27 (22-30) mmol/L Anion Gap 9.7 (5-15) MEQ/L BUN 24 H (7-17) mg/dL Creatinine 2.14 H (0.52-1.04) mg/dL Estimated GFR 30.1 ML/MIN Glucose 103 (74-106) mg/dL Lactic Acid (0.4-2.0) Calcium 12.4 H* D (8.4-10.2) mg/dL Phosphorus 3.2 (2.5-4.5) mg/dL Magnesium 1.6 (1.6-2.3) mg/dL Total Bilirubin (0.2-1.3) mg/dL AST (14-36) U/L ALT (0-35) U/L Alkaline Phosphatase (38-126) U/L Troponin I 0.062 H* 0.041 H* (0.000-0.033) ng/mL Serum Total Protein (6.3-8.2) g/dL Albumin 3.4 L (3.5-5.0) g/dL Lipase (23-300) U/L Serum HCG, Qual (NEGATIVE) Urine Color (Yellow) Urine Appearance (Clear) Urine pH (4.6-8.0) Ur Specific [place] (1.005-1.030) Urine Protein (Negative) Urine Glucose (UA) (Negative) mg/dL Urine Ketones (Negative) Urine Blood (Negative) Urine Nitrite (Negative) Urine Bilirubin (Negative) Urine Urobilinogen (0.2) mg/dL Ur Leukocyte Esterase (Negative) U Hyaline Cast (Auto) (0-2) /LPF Urine Microscopic RBC (0-5) /HPF Urine Microscopic WBC (0-5) /HPF Ur Epithelial Cells (None Seen) /HPF Urine Bacteria (None Seen) /HPF Ur Yeast w Hyphae (None Seen) /HPF Urine Culture Reflexed (NO) Ur Random Creatinine MG/DL U Random Total Protein (0-12) mg/dL Urine Sodium (30-90) mmol/L Radiology Exams: Radiology Procedures Category Date Time Status ABDOMEN AND PELVIS W/0 CONTRAS [CT] Stat Exams 08/15/24 18:23 Taken Medications: Medications Generic Name Dose Route Start Last Admin Trade Name Freq PRN Reason Stop Dose Admin Acetaminophen 325 mg 08/15/24 21:13 08/15/24 22:56 Acetaminophen 325 Mg Tablet PO 09/14/24 21:12 325 mg Q4H PRN PRN Administration PAIN, FEVER, HEADACHE Ceftriaxone Sodium 1 gm in 100 mls @ 200 mls/hr 08/16/24 10:00 Rocephin 1 Gm / 100 Ml Nacl IV 09/15/24 09:59 Q24H10 [place] Potassium Chloride/Sodium Chloride 1,000 mls @ 100 mls/hr 08/15/24 21:15 08/15/24 22:56 Sodium Chloride 0.9% W/ 20 Meq Kcl/Liter IV 09/14/24 21:14 100 mls/hr .Q10H [place] Administration Non-Formulary Medication 40 mg 08/16/24 10:00 Fluoxetine Hcl [Prozac] PO 09/15/24 09:59 DAILY LIS[place]T Pantoprazole Sodium 40 mg 08/16/24 10:00 Protonix (Pantoprazole) 40 Mg Tablet PO 09/15/24 09:59 DAILY [place]T Discontinued Medications Generic Name Dose Route Start Last Admin Trade Name Gavinq PRN Reason Stop Dose Admin Fentanyl Citrate 50 mcg 08/15/24 18:22 08/15/24 18:44 Fentanyl Citrate 100 Mcg/2 Ml* Vial IV 08/15/24 18:23 50 mcg STAT ONE Administration Fentanyl Citrate Confirm 08/15/24 18:38 Fentanyl Citrate 100 Mcg/2 Ml* Vial Administered 08/15/24 18:39 Dose 100 mcg .ROUTE .STK-MED ONE Sodium Chloride 1,000 mls @ 999 mls/hr 08/15/24 18:22 08/15/24 19:45 Sodium Chloride 0.9% 1000 Ml IV 08/15/24 19:22 Infused .Q1H1M STA Infusion Sodium Chloride Confirm 08/15/24 18:39 Sodium Chloride 0.9% 1000 Ml Administered 08/15/24 18:40 Dose 1,000 mls @ ud .ROUTE .STK-MED ONE Sodium Chloride 1,000 mls @ 999 mls/hr 08/15/24 19:30 08/15/24 20:01 Sodium Chloride 0.9% 1000 Ml IV 08/15/24 20:30 999 mls/hr .Q1H1M STA Administration Sodium Chloride Confirm 08/15/24 19:35 Sodium Chloride 0.9% 1000 Ml Administered 08/15/24 19:36 Dose 1,000 mls @ ud .ROUTE .STK-MED ONE Potassium Chloride 20 meq in 100 mls @ 50 mls/hr 08/15/24 19:58 08/15/24 20:00 Potassium Chloride 20 Meq In Water 100ml IV 08/15/24 21:57 50 mls/hr STAT ONE Administration Potassium Chloride Confirm 08/15/24 20:00 Potassium Chloride 20 Meq In Water 100ml Administered 08/15/24 20:01 Dose 100 mls @ ud IV .STK-MED ONE Ondansetron HCl 4 mg 08/15/24 18:22 08/15/24 18:43 Ondansetron Hcl 4 Mg/2 Ml Vial IV 08/15/24 18:23 4 mg STAT ONE Administration Ondansetron HCl Confirm 08/15/24 18:38 Ondansetron Hcl 4 Mg/2 Ml Vial Administered 08/15/24 18:39 Dose 4 mg .ROUTE .STK-MED ONE Pantoprazole Sodium 40 mg 08/15/24 18:22 08/15/24 18:43 Pantoprazole 40 Mg Vial IV 08/15/24 18:23 40 mg STAT ONE Administration Pantoprazole Sodium Confirm 08/15/24 18:38 Pantoprazole 40 Mg Vial Administered 08/15/24 18:39 Dose 40 mg IV .STK-MED ONE Assessment/Plan (1) Acute renal failure (ARF) Current Visit: Yes Status: Acute Assessment & Plan: -creatinine improved from 2.55 to 2.06 -Continue IVF -Discontinue ibuprofen and TUMS. -Rule out myeloma/amyloidosis: SPEP/UPEP pending. -DVT/GI prophylaxis. -Strict I/O monitoring. -Close monitoring of electrolytes and renal function. -No dialysis indicated at present. (2) Hypercalcemia Current Visit: Yes Status: Acute Assessment & Plan: -Likely secondary to excessive calcium carbonate intake -Continue aggressive IVF -Hold calcitonin/bisphosphonates for now; calcium improved from 15.3 to now 12.2 -Workup: PTH, Vitamin D levels, SPEP/UPEP. -Monitor serum calcium and ionized calcium levels closely -Bisphosphonates (IV zoledronic acid or pamidronate) if hypercalcemia persists after fluids -tele -Monitor for cardiac arrhythmias Code(s): E83.52 - HYPERCALCEMIA (3) Elevated troponin Current Visit: Yes Status: Acute Assessment & Plan: -Unclear significance; low suspicion for acute coronary syndrome -Monitor on telemetry. -Serial troponin trending Code(s): R79.89 - OTHER SPECIFIED ABNORMAL FINDINGS OF BLOOD CHEMISTRY (4) GERD with esophagitis Current Visit: Yes Status: Acute Assessment & Plan: -Symptomatic reflux worsened by excessive antacid and NSAID use -Initiate proton pump inhibitor (PPI) therapy. -Encourage oral intake as tolerated. -Pain control with non-NSAID options Code(s): K21.00 - GASTRO-ESOPHAGEAL REFLUX DIS WITH ESOPHAGITIS, WITHOUT BLEED (5) Hypokalemia Current Visit: Yes Status: Acute Assessment & Plan: -Potassium remains at 3.3 -replace with 20 meq of potassium and recheck -Mg level WNL -Encourage oral intake Code(s): E87.6 - HYPOKALEMIA (6) UTI (urinary tract infection) Current Visit: Yes Status: Acute Assessment & Plan: -Empiric ceftriaxone- follow Urine culture for sensitivities. -WBC reviewed continut to trend Code(s): N39.0 - URINARY TRACT INFECTION, SITE NOT SPECIFIED (7) Hypertension Current Visit: Yes Status: Acute Assessment & Plan: -Hypertensive on admission with BP at 200/10- now improved- and stable does not take home meds- Likely transient hypertension secondary to acute illness. No symptoms suggestive of hypertensive emergency. Will continue close BP monitoring and hold on initiating antihypertensives for now as renal perfusion stabilizes. Reassess need for chronic BP therapy upon resolution of OVI and electrolyte abnormalities. Code(s): I10 - ESSENTIAL (PRIMARY) HYPERTENSION
[2024-08-16 08:30] LABS: Absolute Neutrophil Ct (ANC) 5.58 x10^3/uL (1.56-6.13); BASOPHIL % 0.7 % (0.1-1.2); Basophil (Absolute #) 0.06 x10^3/uL (0.01-0.08); Eosinophil % 3.2 % (0.7-5.8); Eosinophil (Absolute #) 0.29 x10^3/uL (0.04-0.36); IMMATURE GRAN # 0.02 x10^3u/L (0.001-0.031); IMMATURE GRAN % 0.2 % (0.001-0.429); Lymphocyte (Absolute #) 2.08 x10^3/uL (1.18-3.74); Lymphocytes % 23.1 % (19.3-51.7); Mean Cell Volume 82.5 fL (79.4-94.8); Mean Corpuscular Hemoglobin 25.8 pg (25.6-32.2); Mean Corpuscular Hgb Concent. 31.3 g/dL (32.2-35.5); Mean Platelet Volume 8.9 fL (9.4-12.3); Monocyte (Absolute #) 0.96 x10^3/uL (0.24-0.86); Monocytes % 10.7 % (4.7-12.5); Neutrophil % 62.1 % (34.0-71.1); Platelet Count 459 x10^3/uL (182-369); Red Blood Count 3.88 x10^6/uL (3.93-5.22); Red Cell Distribution Width 12.6 % (11.7-14.4)
[2024-08-16 08:42] LABS: ALBUMIN 3.6 g/dL (3.5-5.0); ANION GAP 10.1 MEQ/L (5-15); BILIRUBIN,TOTAL 0.4 mg/dL (0.2-1.3); Creatinine 1 2.06 mg/dL (0.52-1.04); EST GLOMERULAR FILTRATION RATE 31.5 ML/MIN; Potassium 3.3 mmol/L (3.5-5.1); Total Protein 6.6 g/dL (6.3-8.2)
--- NOTE | 2024-08-16 08:44 | XRAY ---
Indication: Abdominal pain. Vomiting. Multiple contiguous axial images obtained through the abdomen and pelvis without contrast. Comparison: None Lung bases clear. Heart not enlarged. Small hiatal hernia. Noncontrasted stomach and bowel loops appear nonobstructed. Normal appendix. Mild diffuse fecal stasis. Radiopacities throughout colon either ingested medication, bismuth, or barium. Nonobstructing right renal punctate calculus. No free fluid/air. Remaining liver, gallbladder, pancreas, spleen, adrenal glands, kidneys, ureters, bladder, uterus, and aorta are unremarkable for noncontrast exam. Osseous structures intact. No ventral or inguinal hernias. Impression: Small hiatal hernia. Mild diffuse fecal stasis. Nonobstructing right renal punctate calculus. Remaining CT abdomen/pelvis without contrast exam is negative.
[2024-08-16 08:52] LABS: Calcium 12.2 mg/dL (8.4-10.2)
[2024-08-16] MEDS: Prozac 20 MG PO SCH (08:59)
[2024-08-16] MEDS: Protonix 40MG Tablet PO SCH (08:59)
[2024-08-16] MEDS: ROCEPHIN 1 GM / 100 ML NaCl 1 GM/100 ML IVPB IV SCH (09:01)
[2024-08-16] MEDS: Klor Con PO ONE ×3 (09:09→17:16)
[2024-08-16] MEDS ORDERED: NON-FORMULARY ITEM (Fluoxetine Hcl [Prozac] 40 MG Capsule) PO SCH (10:00)
[2024-08-16] MEDS: NORVASC 5 MG PO ONE (12:25)
[2024-08-16] MEDS: NORCO 5/325 MG PO PRN (17:54)
--- NOTE | 2024-08-17 05:19 | PCM.NOTE ---
Date and Time: 08/17/24 0518 Subjective Assessment: Ms. Verma is a 34-year-old female with a history of depression and migraine headaches (self-medicating with 8 ibuprofen daily) presented with several days of epigastric abdominal pain, nausea, and vomiting. She endorsed excessive antacid use (12-14 TUMS daily) for presumed acid reflux. Initial labs revealed hypercalcemia (Ca 15.3), acute kidney injury (Cr 2.6), elevated bicarbonate (30), mild leukocytosis (WBC 13.1), hypokalemia, and elevated troponin of unclear etiology. No prior CKD or hypercalcemia history. 08/16/24: The patient was evaluated at the bedside and reports significant clinical improvement today. She denies any ongoing nausea or vomiting and is tolerating an oral diet without difficulty. The patient relayed that her prior symptoms of reflux, nausea, and vomiting began earlier in the week, which she attributed to a gastrointestinal illness. A recent CT scan of the abdomen revealed no acute intra-abdominal pathology. Laboratory studies demonstrate improving renal function and down-trending calcium levels. The current plan is to continue intravenous fluid therapy with close monitoring of her clinical status and laboratory parameters. 08/17/24: Met with the patient and her family at the bedside. The patient reports significant improvement in her overall condition, stating that today she feels the best she has in years. She has a history of chronic migraines and is managed by her primary care provider. Current migraine regimen includes fluoxetine (Prozac) and naratriptan; however, she reports minimal relief with these medications. Consequently, she has been self-medicating with multiple daily doses of ibuprofen and Tums for several years. Regarding her hospitalization, renal function has shown marked improvement, with serum creatinine decreasing from 2.55 on admission to 1.60. Serum calcium, initially elevated at 15.3, has normalized to 10.2. Urinalysis was negative for infection, and ceftriaxone has been discontinued. BP has been continuously elevated since admission, will start amlodipine. - Review of Systems Constitutional: No Symptoms Eyes: No Symptoms Ears, Nose, & Throat: No Symptoms Respiratory: No Symptoms Cardiac: No Symptoms Abdominal/Gastrointestinal: No Symptoms Genitourinary Symptoms: No Symptoms Musculoskeletal: No Symptoms Skin: No Symptoms Neurological: No Symptoms Psychological: No Symptoms Endocrine: No Symptoms Hematologic/Lymphatic: No Symptoms Immunological/Allergic: No Symptoms Objective Exam General Appearance: no apparent distress Neurologic Exam: alert, oriented x 3, cooperative Skin Exam: normal color Eye Exam: PERRL Ears, Nose, Throat Exam: normal ENT inspection Neck Exam: normal inspection Respiratory Exam: normal breath sounds, lungs clear Cardiovascular Exam: regular rate/rhythm, normal heart sounds Gastrointestinal/Abdomen Exam: soft, normal bowel sounds Extremity Exam: normal inspection Back Exam: normal inspection Pelvic Exam: deferred Rectal Exam: deferred Objective Data Vital Signs: Vital Signs - 24 hr Temp Pulse Resp BP Pulse Ox 08/17/24 04:00 97.6 F 72 18 136/101 96 08/17/24 00:06 97.7 F 82 18 160/101 97 08/16/24 20:00 97.5 F 83 18 142/102 97 08/16/24 18:55 141/95 08/16/24 17:00 98.0 F 94 H 20 165/105 94 L 08/16/24 13:46 133/80 08/16/24 12:00 97.8 F 81 22 166/109 96 08/16/24 08:00 97.3 F 79 20 136/92 95 Pain Assessment - Last Documented Pain Intensity 4 Pain Scale Used 0-10 Pain Scale Intake and Output: Intake & Output 08/14/24 08/15/24 08/16/24 08/17/24 11:59 11:59 11:59 11:59 Intake Total 1802 4246 Output Total 1150 Balance 652 4246 Weight 92.9 kg Lab Results: Lab Results-Last 24 Hours 08/16/24 08/16/24 08/16/24 Range/Units 08:20 08:20 12:54 WBC 9.0 (3.98-10.04) x10^3/uL RBC 3.88 L (3.93-5.22) x10^6/uL Hgb 10.0 L (11.2-15.7) g/dL Hct 32.0 L (34.1-44.9) % MCV 82.5 (79.4-94.8) fL MCH 25.8 (25.6-32.2) pg MCHC 31.3 L (32.2-35.5) g/dL RDW 12.6 (11.7-14.4) % Plt Count 459 H (182-369) x10^3/uL MPV 8.9 L (9.4-12.3) fL Gran % 62.1 (34.0-71.1) % Immature Gran % (Auto) 0.2 (0.001-0.429) % Nucleat RBC Rel Count 0.0 (0.00-0.2) % Eos # (Auto) 0.29 (0.04-0.36) x10^3/uL Immature Gran # (Auto) 0.02 (0.001-0.031) x10^3u/L Absolute Lymphs (auto) 2.08 (1.18-3.74) x10^3/uL Absolute Monos (auto) 0.96 H (0.24-0.86) x10^3/uL Absolute Nucleated RBC 0.00 (0.00-0.012) x10^3u/L Lymphocytes % 23.1 (19.3-51.7) % Monocytes % 10.7 (4.7-12.5) % Eosinophils % 3.2 (0.7-5.8) % Basophils % 0.7 (0.1-1.2) % Absolute Granulocytes 5.58 (1.56-6.13) x10^3/uL Basophils # 0.06 (0.01-0.08) x10^3/uL Sodium 140 (135-145) mmol/L Potassium 3.3 L 3.3 L (3.5-5.1) mmol/L Chloride 105 (98-107) mmol/L Carbon Dioxide 27 (22-30) mmol/L Anion Gap 10.1 (5-15) MEQ/L BUN 24 H (7-17) mg/dL Creatinine 2.06 H (0.52-1.04) mg/dL Estimated GFR 31.5 ML/MIN Glucose 95 (74-106) mg/dL Calcium 12.2 H* (8.4-10.2) mg/dL Total Bilirubin 0.40 (0.2-1.3) mg/dL AST 24 (14-36) U/L ALT 19 (0-35) U/L Alkaline Phosphatase 74 (38-126) U/L Serum Total Protein 6.6 (6.3-8.2) g/dL Albumin 3.6 (3.5-5.0) g/dL 08/16/24 08/16/24 Range/Units 16:30 20:55 WBC (3.98-10.04) x10^3/uL RBC (3.93-5.22) x10^6/uL Hgb (11.2-15.7) g/dL Hct (34.1-44.9) % MCV (79.4-94.8) fL MCH (25.6-32.2) pg MCHC (32.2-35.5) g/dL RDW (11.7-14.4) % Plt Count (182-369) x10^3/uL MPV (9.4-12.3) fL Gran % (34.0-71.1) % Immature Gran % (Auto) (0.001-0.429) % Nucleat RBC Rel Count (0.00-0.2) % Eos # (Auto) (0.04-0.36) x10^3/uL Immature Gran # (Auto) (0.001-0.031) x10^3u/L Absolute Lymphs (auto) (1.18-3.74) x10^3/uL Absolute Monos (auto) (0.24-0.86) x10^3/uL Absolute Nucleated RBC (0.00-0.012) x10^3u/L Lymphocytes % (19.3-51.7) % Monocytes % (4.7-12.5) % Eosinophils % (0.7-5.8) % Basophils % (0.1-1.2) % Absolute Granulocytes (1.56-6.13) x10^3/uL Basophils # (0.01-0.08) x10^3/uL Sodium (135-145) mmol/L Potassium 3.4 L 3.6 (3.5-5.1) mmol/L Chloride (98-107) mmol/L Carbon Dioxide (22-30) mmol/L Anion Gap (5-15) MEQ/L BUN (7-17) mg/dL Creatinine (0.52-1.04) mg/dL Estimated GFR ML/MIN Glucose (74-106) mg/dL Calcium (8.4-10.2) mg/dL Total Bilirubin (0.2-1.3) mg/dL AST (14-36) U/L ALT (0-35) U/L Alkaline Phosphatase (38-126) U/L Serum Total Protein (6.3-8.2) g/dL Albumin (3.5-5.0) g/dL Radiology Exams: Radiology Procedures Category Date Time Status ABDOMEN AND PELVIS W/0 CONTRAS [CT] Stat Exams 08/15/24 18:23 Completed Medications: Medications Generic Name Dose Route Start Last Admin Trade Name Freq PRN Reason Stop Dose Admin Acetaminophen 325 mg 08/15/24 21:13 08/16/24 16:12 Acetaminophen 325 Mg Tablet PO 09/14/24 21:12 325 mg Q4H PRN PRN Administration PAIN, FEVER, HEADACHE Hydrocodone Bitart/Acetaminophen 1 tab 08/16/24 17:31 08/16/24 17:54 Hydrocodone/Apap 5/325 1 Tab Tablet PO 08/21/24 17:30 1 tab Q4H PRN PRN Administration PAIN Amlodipine Besylate 5 mg 08/17/24 10:00 Amlodipine Besylate 5 Mg Tablet PO 09/16/24 09:59 QAM LISSETT Fluoxetine HCl 40 mg 08/16/24 10:00 08/16/24 08:59 Fluoxetine Hcl 20 Mg Cap PO 09/15/24 09:59 40 mg DAILY LISSETT Administration Ceftriaxone Sodium 1 gm in 100 mls @ 200 mls/hr 08/16/24 10:00 08/16/24 09:01 Rocephin 1 Gm / 100 Ml Nacl IV 09/15/24 09:59 200 mls/hr Q24H10 LISSETT Administration Potassium Chloride/Sodium Chloride 1,000 mls @ 100 mls/hr 08/15/24 21:15 08/16/24 20:53 Sodium Chloride 0.9% W/ 20 Meq Kcl/Liter IV 09/14/24 21:14 100 mls/hr .Q10H LISSETT Administration Pantoprazole Sodium 40 mg 08/16/24 10:00 08/16/24 08:59 Protonix (Pantoprazole) 40 Mg Tablet PO 09/15/24 09:59 40 mg DAILY LISSETT Administration Discontinued Medications Generic Name Dose Route Start Last Admin Trade Name Freq PRN Reason Stop Dose Admin Amlodipine Besylate 5 mg 08/16/24 12:01 08/16/24 12:25 Amlodipine Besylate 5 Mg Tablet PO 08/16/24 12:02 5 mg ONCE ONE Administration Fentanyl Citrate 50 mcg 08/15/24 18:22 08/15/24 18:44 Fentanyl Citrate 100 Mcg/2 Ml* Vial IV 08/15/24 18:23 50 mcg STAT ONE Administration Fentanyl Citrate Confirm 08/15/24 18:38 Fentanyl Citrate 100 Mcg/2 Ml* Vial Administered 08/15/24 18:39 Dose 100 mcg .ROUTE .STK-MED ONE Sodium Chloride 1,000 mls @ 999 mls/hr 08/15/24 18:22 08/15/24 19:45 Sodium Chloride 0.9% 1000 Ml IV 08/15/24 19:22 Infused .Q1H1M STA Infusion Sodium Chloride Confirm 08/15/24 18:39 Sodium Chloride 0.9% 1000 Ml Administered 08/15/24 18:40 Dose 1,000 mls @ ud .ROUTE .STK-MED ONE Sodium Chloride 1,000 mls @ 999 mls/hr 08/15/24 19:30 08/15/24 20:01 Sodium Chloride 0.9% 1000 Ml IV 08/15/24 20:30 999 mls/hr .Q1H1M STA Administration Sodium Chloride Confirm 08/15/24 19:35 Sodium Chloride 0.9% 1000 Ml Administered 08/15/24 19:36 Dose 1,000 mls @ ud .ROUTE .STK-MED ONE Potassium Chloride 20 meq in 100 mls @ 50 mls/hr 08/15/24 19:58 08/15/24 20:00 Potassium Chloride 20 Meq In Water 100ml IV 08/15/24 21:57 50 mls/hr STAT ONE Administration Potassium Chloride Confirm 08/15/24 20:00 Potassium Chloride 20 Meq In Water 100ml Administered 08/15/24 20:01 Dose 100 mls @ ud IV .STK-MED ONE Ondansetron HCl 4 mg 08/15/24 18:22 08/15/24 18:43 Ondansetron Hcl 4 Mg/2 Ml Vial IV 08/15/24 18:23 4 mg STAT ONE Administration Ondansetron HCl Confirm 08/15/24 18:38 Ondansetron Hcl 4 Mg/2 Ml Vial Administered 08/15/24 18:39 Dose 4 mg .ROUTE .STK-MED ONE Pantoprazole Sodium 40 mg 08/15/24 18:22 08/15/24 18:43 Pantoprazole 40 Mg Vial IV 08/15/24 18:23 40 mg STAT ONE Administration Pantoprazole Sodium Confirm 08/15/24 18:38 Pantoprazole 40 Mg Vial Administered 08/15/24 18:39 Dose 40 mg IV .STK-MED ONE Potassium Chloride 20 meq 08/16/24 09:03 08/16/24 09:09 Potassium Chloride Tab 10 Meq Tab PO 08/16/24 09:04 20 meq STAT ONE Administration Potassium Chloride 20 meq 08/16/24 14:17 08/16/24 15:25 Potassium Chloride Tab 10 Meq Tab PO 08/16/24 14:18 20 meq STAT ONE Administration Potassium Chloride 20 meq 08/16/24 17:01 08/16/24 17:16 Potassium Chloride Tab 10 Meq Tab PO 08/16/24 17:02 20 meq STAT ONE Administration Assessment/Plan (1) Acute renal failure (ARF) Current Visit: Yes Status: Acute Assessment & Plan: -creatinine improved from 2.55 to 2.06 -Continue IVF -Discontinue ibuprofen and TUMS. -Rule out myeloma/amyloidosis: SPEP/UPEP pending. -DVT/GI prophylaxis. -Strict I/O monitoring. -Close monitoring of electrolytes and renal function. -No dialysis indicated at present. 08/17: -Creat reviewed and improving now at 1.60 -continue IVF -Reiterated need to discontinue ibuprofen and tums (2) Hypercalcemia Current Visit: Yes Status: Acute Assessment & Plan: -Likely secondary to excessive calcium carbonate intake -Continue aggressive IVF -Hold calcitonin/bisphosphonates for now; calcium improved from 15.3 to now 12.2 -Workup: PTH, Vitamin D levels, SPEP/UPEP. -Monitor serum calcium and ionized calcium levels closely -Bisphosphonates (IV zoledronic acid or pamidronate) if hypercalcemia persists after fluids -tele -Monitor for cardiac arrhythmias 08/17: -Resolved -patient educated on overuse of tums Code(s): E83.52 - HYPERCALCEMIA (3) Elevated troponin Current Visit: Yes Status: Acute Assessment & Plan: -Unclear significance; low suspicion for acute coronary syndrome -Monitor on telemetry. -Serial troponin trending Code(s): R79.89 - OTHER SPECIFIED ABNORMAL FINDINGS OF BLOOD CHEMISTRY (4) GERD with esophagitis Current Visit: Yes Status: Acute Assessment & Plan: -Symptomatic reflux worsened by excessive antacid and NSAID use -Initiate proton pump inhibitor (PPI) therapy. -Encourage oral intake as tolerated. -Pain control with non-NSAID options Code(s): K21.00 - GASTRO-ESOPHAGEAL REFLUX DIS WITH ESOPHAGITIS, WITHOUT BLEED (5) Hypokalemia Current Visit: Yes Status: Acute Assessment & Plan: -Potassium remains at 3.3 -replace with 20 meq of potassium and recheck -Mg level WNL -Encourage oral intake 08/17: -Potassium at 3.4- will order 40meq of potassium and recheck Code(s): E87.6 - HYPOKALEMIA (6) UTI (urinary tract infection) Current Visit: Yes Status: Acute Assessment & Plan: -Empiric ceftriaxone- follow Urine culture for sensitivities. -WBC reviewed continue to trend 08/17: -Ucult negative - dc ceftriaxone Code(s): N39.0 - URINARY TRACT INFECTION, SITE NOT SPECIFIED (7) Hypertension Current Visit: Yes Status: Acute Assessment & Plan: -Hypertensive on admission with BP at 200/100- now improved- and stable does not take home meds- Likely transient hypertension secondary to acute illness. No symptoms suggestive of hypertensive emergency. Will continue close BP monitoring and hold on initiating antihypertensives for now as renal perfusion stabilizes. Reassess need for chronic BP therapy upon resolution of OVI and electrolyte abnormalities. 08/17: -Will add amlodipine 5mg and monitor closely for persistent elevated bp Migraines -continue naratriptan -Advised OP neuro consult for medication adjustment to aid in migraines -discontinue Ibuprofen Code(s): I10 - ESSENTIAL (PRIMARY) HYPERTENSION (2) Hypercalcemia Current Visit: Yes Status: Acute Code(s): E83.52 - HYPERCALCEMIA (3) Elevated troponin Current Visit: Yes Status: Acute Code(s): R79.89 - OTHER SPECIFIED ABNORMAL FINDINGS OF BLOOD CHEMISTRY (4) GERD with esophagitis Current Visit: Yes Status: Acute Code(s): K21.00 - GASTRO-ESOPHAGEAL REFLUX DIS WITH ESOPHAGITIS, WITHOUT BLEED (5) Hypokalemia Current Visit: Yes Status: Acute Code(s): E87.6 - HYPOKALEMIA (6) UTI (urinary tract infection) Current Visit: Yes Status: Acute Code(s): N39.0 - URINARY TRACT INFECTION, SITE NOT SPECIFIED (7) Hypertension Current Visit: Yes Status: Acute Code(s): I10 - ESSENTIAL (PRIMARY) HYPERTENSION (8) Migraines Current Visit: Yes Status: Acute Code(s): G43.909 - MIGRAINE, UNSP, NOT INTRACTABLE, WITHOUT STATUS MIGRAINOSUS
[2024-08-17 05:45] LABS: BASOPHIL % 0.8 % (0.1-1.2); Basophil (Absolute #) 0.07 x10^3/uL (0.01-0.08); Eosinophil % 7.5 % (0.7-5.8); Eosinophil (Absolute #) 0.64 x10^3/uL (0.04-0.36); Hematocrit 30.8 % (34.1-44.9); Hemoglobin 9.4 g/dL (11.2-15.7); IMMATURE GRAN # 0.03 x10^3u/L (0.001-0.031); IMMATURE GRAN % 0.4 % (0.001-0.429); Lymphocyte (Absolute #) 2.98 x10^3/uL (1.18-3.74); Lymphocytes % 34.8 % (19.3-51.7); Mean Cell Volume 84.2 fL (79.4-94.8); Mean Corpuscular Hemoglobin 25.7 pg (25.6-32.2); Mean Corpuscular Hgb Concent. 30.5 g/dL (32.2-35.5); Mean Platelet Volume 9.1 fL (9.4-12.3); Monocyte (Absolute #) 0.75 x10^3/uL (0.24-0.86); Monocytes % 8.8 % (4.7-12.5); Neutrophil % 47.7 % (34.0-71.1); Platelet Count 426 x10^3/uL (182-369); Red Blood Count 3.66 x10^6/uL (3.93-5.22); Red Cell Distribution Width 12.8 % (11.7-14.4); White Blood Count 8.6 x10^3/uL (3.98-10.04)
[2024-08-17 05:53] LABS: ALBUMIN 3.6 g/dL (3.5-5.0); ANION GAP 9.7 MEQ/L (5-15); BILIRUBIN,TOTAL 0.1 mg/dL (0.2-1.3); Calcium 10.2 mg/dL (8.4-10.2); Creatinine 1 1.6 mg/dL (0.52-1.04); EST GLOMERULAR FILTRATION RATE 42.6 ML/MIN; Potassium 3.4 mmol/L (3.5-5.1); Total Protein 6.4 g/dL (6.3-8.2)
[2024-08-17] MEDS: Klor Con PO ONE (08:13)
[2024-08-17] MEDS: NORVASC 5 MG PO SCH (09:41)
[2024-08-17] MEDS ORDERED: NARATRIPTAN HCL 1 MG PO PRN (10:12)
[2024-08-17] MEDS ORDERED: NARATRIPTAN HCL 2.5 MG PO PRN (10:14)
[2024-08-17] MEDS ORDERED: PATIENT OWN MEDICATION PO PRN (11:16)
[2024-08-17] MEDS: Sodium Chloride 0.9% 1000 ML 1,000 ML IV SCH (18:54)
--- NOTE | 2024-08-18 05:35 | PCM.DS ---
Discharge Summary Date of Admission: 08/15/24 21:11 Date of Discharge: 08/18/24 Admitting Physician: EBER PARKER MD Primary Care Provider: ARCHANA CARRERO Allergies Allergies No Known Drug Allergies Allergy (Verified 08/15/24 18:09) Hospital Summary - Hospital Course Hospital Course: Ms. Verma with a pmhx of migraines was admitted 08/15/24 with acute renal failure in the setting of NSAID and calcium carbonate overuse, hypercalcemia, and transient hypertension, complicated by mild hypokalemia, an initially suspected urinary tract infection, elevated troponin levels without evidence of acute coronary syndrome, and symptomatic GERD with esophagitis. During her hospital course, creatinine improved from 2.55 mg/dL to 1.24 mg/dL with aggressive intravenous fluid resuscitation and strict avoidance of nephrotoxic agents. Hypercalcemia resolved (peak 15.3 mg/dL-12.2 mg/dL-normal) following cessation of TUMS and continued hydration. Magnesium level at 1.3. Electrolyte disturbances were corrected with targeted potassium and magnesium repletion. Will continue oral potassium for three days with labs on Monday with PCP to evaluate renal/lytes. Telemetry monitoring revealed troponin elevations without ischemic changes; these have normalized, and there were no arrhythmias. Empiric ceftriaxone was initiated for presumed UTI but discontinued when cultures returned with no predominant organism. WBC increased after discontinuation of Ceftriaxone. Clinical picture consistent with ongoing infection despite negative culture. Will repeat the UA and continue on Cefdinir at discharge with close follow up by PCP. The patients blood pressure stabilized, and amlodipine 5 mg daily was started for ongoing management. GERD symptoms improved on proton pump inhibitor therapy. Migraines were managed with naratriptan, and outpatient neurology follow-up was arranged for further optimization. Patient advised PCP follow up. Home instruction to continue avoidance of tums and nsaids. She is to keep a blood pressure log to take to her appt to evaluate any adjustments to amlodipine. Will have sales secretary arrange follow up visit with PCP next week with CMP and magnesium level as patient does not currently have one- sales secretary will call with appt tomorrow. Patient is advised to call if she does not hear from us. I spent 35 minutes [id number] with the patient on the day of discharge performing discharge exam, discussing hospital stay and discharge instructions with patient and caregivers, preparation of discharge records, prescriptions & referral forms and addressing any questions/concerns the patient had as documented above. - Vitals & Intake/Output Vital Signs: Vital Signs Temperature 97.3 F 08/18/24 04:00 Pulse Rate 89 08/18/24 04:00 Respiratory Rate 20 08/18/24 04:00 Blood Pressure 134/91 08/18/24 04:00 O2 Sat by Pulse Oximetry 98 08/18/24 04:00 Intake & Output: Intake & Output 08/15/24 08/16/24 08/17/24 08/18/24 11:59 11:59 11:59 11:59 Intake Total 1802 4366 3641 Output Total 1150 Balance 652 4366 3641 Weight 92.9 kg - Lab Result Diagrams: 08/18/24 05:10 08/18/24 05:10 Lab Results-Last 24 Hrs: Lab Results-Last 24 Hours 08/17/24 08/17/24 08/17/24 Range/Units 05:23 05:23 10:28 WBC 8.6 (3.98-10.04) x10^3/uL RBC 3.66 L (3.93-5.22) x10^6/uL Hgb 9.4 L (11.2-15.7) g/dL Hct 30.8 L (34.1-44.9) % MCV 84.2 (79.4-94.8) fL MCH 25.7 (25.6-32.2) pg MCHC 30.5 L (32.2-35.5) g/dL RDW 12.8 (11.7-14.4) % Plt Count 426 H (182-369) x10^3/uL MPV 9.1 L (9.4-12.3) fL Gran % 47.7 (34.0-71.1) % Immature Gran % (Auto) 0.4 (0.001-0.429) % Nucleat RBC Rel Count 0.0 (0.00-0.2) % Eos # (Auto) 0.64 H (0.04-0.36) x10^3/uL Immature Gran # (Auto) 0.03 (0.001-0.031) x10^3u/L Absolute Lymphs (auto) 2.98 (1.18-3.74) x10^3/uL Absolute Monos (auto) 0.75 (0.24-0.86) x10^3/uL Absolute Nucleated RBC 0.00 (0.00-0.012) x10^3u/L Lymphocytes % 34.8 (19.3-51.7) % Monocytes % 8.8 (4.7-12.5) % Eosinophils % 7.5 H (0.7-5.8) % Basophils % 0.8 (0.1-1.2) % Absolute Granulocytes 4.10 (1.56-6.13) x10^3/uL Basophils # 0.07 (0.01-0.08) x10^3/uL Sodium 137 (135-145) mmol/L Potassium 3.4 L 3.7 (3.5-5.1) mmol/L Chloride 109 H (98-107) mmol/L Carbon Dioxide 22 (22-30) mmol/L Anion Gap 9.7 (5-15) MEQ/L BUN 18 H (7-17) mg/dL Creatinine 1.60 H (0.52-1.04) mg/dL Estimated GFR 42.6 ML/MIN Glucose 94 (74-106) mg/dL Calcium 10.2 D (8.4-10.2) mg/dL Total Bilirubin 0.10 L (0.2-1.3) mg/dL AST 22 (14-36) U/L ALT 16 (0-35) U/L Alkaline Phosphatase 70 (38-126) U/L Serum Total Protein 6.4 (6.3-8.2) g/dL Albumin 3.6 (3.5-5.0) g/dL Micro Results-Entire Visit: Microbiology 08/15/24 19:42 Urine Culture - Final Clean Catch Midstream MIXED CYNTHIA; 3 OR MORE TYPES. NO PREDOMINANT ORGANISM. NO FURTHER WORKUP. PLEASE RESUBMIT IF CLINICALLY INDICATED. Discharge Exam General Appearance: no apparent distress Neurologic Exam: alert, oriented x 3, cooperative Eye Exam: PERRL Ears, Nose, Throat Exam: normal ENT inspection Neck Exam: normal inspection Respiratory Exam: normal breath sounds, lungs clear Cardiovascular Exam: regular rate/rhythm, normal heart sounds Gastrointestinal/Abdomen Exam: soft, normal bowel sounds Pelvic Exam: deferred Rectal Exam: deferred Back Exam: normal inspection Extremity Exam: normal inspection Skin Exam: normal color Final Diagnosis/Problem List - Final Discharge Diagnosis/Problem (1) Acute renal failure (ARF) Current Visit: Yes Status: Acute Assessment & Plan: -Avoid all NSAIDs and calcium carbonate supplements -Encourage euvolemia with 22.5 L/day oral fluids as tolerated -Outpatient monitoring of renal function (BMP in 1 week) -Nephrology follow-up in 2 weeks (2) Hypercalcemia Current Visit: Yes Status: Acute Assessment & Plan: -Discontinue calcium carbonate (TUMS) permanently -Maintain adequate hydration; target 2 L/day oral intake -Monitor serum calcium and ionized calcium levels in 1 week -PCP follow up Code(s): E83.52 - HYPERCALCEMIA (3) Elevated troponin Current Visit: Yes Status: Acute Assessment & Plan: No acute ischemia; reassure patient - Code(s): R79.89 - OTHER SPECIFIED ABNORMAL FINDINGS OF BLOOD CHEMISTRY (4) GERD with esophagitis Current Visit: Yes Status: Acute Assessment & Plan: -Continue pantoprazole 40 mg PO daily before breakfast -Advise small, frequent meals; avoid late-night eating and NSAIDs -Elevate head of bed by 30 when sleeping -Gastroenterology follow-up as needed Code(s): K21.00 - GASTRO-ESOPHAGEAL REFLUX DIS WITH ESOPHAGITIS, WITHOUT BLEED (5) Hypokalemia Current Visit: Yes Status: Acute Assessment & Plan: -Potassium chloride 20 mEq PO once daily for 3 days, then recheck BMP -Encourage high-potassium diet (bananas, potatoes, spinach) -Repeat serum potassium in 1 week Code(s): E87.6 - HYPOKALEMIA (6) UTI (urinary tract infection) Current Visit: Yes Status: Acute Assessment & Plan: -Empiric ceftriaxone was initiated for presumed UTI but discontinued when cultures returned with no predominant organism. WBC increased after discontinuation of Ceftriaxone. Clinical picture consistent with ongoing infection despite negative culture. Will repeat the UA and continue on Cefdinir at discharge with close follow up by PCP. Code(s): N39.0 - URINARY TRACT INFECTION, SITE NOT SPECIFIED (7) Hypertension Current Visit: Yes Status: Acute Assessment & Plan: -Amlodipine 5 mg PO daily; titrate based on home BP -Home blood pressure monitoring twice daily; log readings -Primary care follow-up in 1 week Code(s): I10 - ESSENTIAL (PRIMARY) HYPERTENSION (8) Migraines Current Visit: Yes Status: Acute Assessment & Plan: -Continue naratriptan 2.5 mg PO at onset of headache (max 2 doses/day) -Neurology clinic appointment in 4 weeks for prophylactic therapy evaluation -Avoid NSAIDs; consider non-pharmacologic triggers avoidance Code(s): G43.909 - MIGRAINE, UNSP, NOT INTRACTABLE, WITHOUT STATUS MIGRAINOSUS (9) Hypomagnesemia Current Visit: Yes Status: Acute Assessment & Plan: -Replenished - PCP to recheck next week Code(s): E83.42 - HYPOMAGNESEMIA - Discharge Discharge Date: 08/18/24 Disposition: Home, Self-Care Condition: Stable Prescriptions: New Amlodipine Besylate 5 mg [Norvasc 5 mg] 5 mg PO QAM 30 Days #30 tablet Cefdinir 300 mg [Omnicef 300 mg] 300 mg PO BID 7 Days #14 cap PANTOPRAZOLE 40 mg Tablet [Protonix 40MG Tablet] 40 mg PO DAILY 14 Days #14 tablet Potassium Chloride 20 meq PO BID 3 Days #6 tablet Continue Fluoxetine HCl [Prozac] 40 mg PO DAILY Ondansetron ODT 4 MG [Zofran Odt 4 mg] 4 mg PO Q6H PRN PRN PRN Reason: Nausea Naratriptan HCl 2.5 mg PO Q6HPRN PRN PRN Reason: Headache Additional Instructions: Start oral potassium 08/20/23 Follow up with PCP Monday or - you will need recheck CMP/Magnesium levels Do not take Tums or NSAIDS (Ibuprofen) Keep blood pressure to take to PCP for any adjustments needed to BP meds Follow up with: ARCHANA CARRERO [Primary Care Provider, [facility]] Forms: Work/School Release Form
[2024-08-18 05:48] LABS: Absolute Neutrophil Ct (ANC) 6.02 x10^3/uL (1.56-6.13); BASOPHIL % 0.8 % (0.1-1.2); Basophil (Absolute #) 0.09 x10^3/uL (0.01-0.08); Eosinophil % 9.3 % (0.7-5.8); Eosinophil (Absolute #) 1.04 x10^3/uL (0.04-0.36); Hematocrit 31.4 % (34.1-44.9); Hemoglobin 9.7 g/dL (11.2-15.7); IMMATURE GRAN # 0.04 x10^3u/L (0.001-0.031); IMMATURE GRAN % 0.4 % (0.001-0.429); Lymphocyte (Absolute #) 3.21 x10^3/uL (1.18-3.74); Lymphocytes % 28.7 % (19.3-51.7); Mean Cell Volume 83.1 fL (79.4-94.8); Mean Corpuscular Hemoglobin 25.7 pg (25.6-32.2); Mean Corpuscular Hgb Concent. 30.9 g/dL (32.2-35.5); Mean Platelet Volume 9.1 fL (9.4-12.3); Monocyte (Absolute #) 0.78 x10^3/uL (0.24-0.86); Neutrophil % 53.8 % (34.0-71.1); Platelet Count 475 x10^3/uL (182-369); Red Blood Count 3.78 x10^6/uL (3.93-5.22); Red Cell Distribution Width 12.8 % (11.7-14.4); White Blood Count 11.2 x10^3/uL (3.98-10.04)
[2024-08-18 05:58] LABS: ALBUMIN 3.9 g/dL (3.5-5.0); ANION GAP 14.8 MEQ/L (5-15); BILIRUBIN,TOTAL 0.1 mg/dL (0.2-1.3); Creatinine 1 1.24 mg/dL (0.52-1.04); EST GLOMERULAR FILTRATION RATE 57.8 ML/MIN; Potassium 3.3 mmol/L (3.5-5.1); Total Protein 6.9 g/dL (6.3-8.2)
[2024-08-18 08:00] LABS: MAGNESIUM 1.3 mg/dL (1.6-2.3); PROCALCITONIN 0.061 ng/mL (0.030-0.080)
[2024-08-18] MEDS: Klor Con PO ONE (08:05)
[2024-08-18] MEDS: MAGNESIUM SULF 2 G/50 ML BAG 2 GM/50 ML PIGGYBACK IV ONE (10:03)
[2024-08-18 10:28] LABS: Appearance Cloudy (Clear); Bacteria Few /HPF (None Seen); Bilirubin Negative (Negative); Blood Negative (Negative); Epithelial Cells Moderate /HPF (None Seen); Glucose, Urine Negative (Negative); Hyaline Casts NONE SEEN /LPF (0-2); Ketones Negative (Negative); Leukocyte Esterase Large (Negative); Nitrite Negative (Negative); Protein,Urine Dip Negative (Negative); Urobilinogen 0.2 mg/dL (0.2)
[2024-08-18] MEDS: ROCEPHIN 1 GM / 100 ML NaCl 1 GM/100 ML IVPB IV SCH (10:41)
[2024-08-18 10:51] LABS: Budding Yeast Few /HPF (None Seen); Hyphae Yeast Few /HPF (None Seen)
[2024-08-18] MEDS: PHARMACY RENAL DOSING MC ONE (10:55)
[2024-08-18 11:47] VITALS: BP 129/89; PULSE 86; RESP 18; TEMP 97.3; O2SAT 95
== END 2024-08-18 11:52 | disposition home or self-care (01) ==
LOC: ED 17:58 → MED SURG 21:11
PROVIDERS: ADMIT Internal Medicine Nephrology; ATTEND Internal Medicine Nephrology
DX: N17.9 Acute kidney failure, unspecified (principal); E83.52 Hypercalcemia; R79.89 Other specified abnormal findings of blood chemistry; K21.00 Gastro-esophageal reflux disease with esophagitis, without bleeding; E87.6 Hypokalemia; N39.0 Urinary tract infection, site not specified; I10 Essential (primary) hypertension; G43.909 Migraine, unspecified, not intractable, without status migrainosus; E83.42 Hypomagnesemia; F32.A Depression, unspecified; Z79.899 Other long term (current) drug therapy
CPT/HCPCS: 36415; 74176; 80053; 80069; 81001; 82330; 82570; 83605; 83690; 83735; 83970; 84132; 84145; 84156; 84300; 84484; 84703; 85025; 87086; 93005; 93268; 96374; 96375; 99285; 99291; J0696; J2405; J3010; J3480; Q3014; A9270-GY; G0378; J3475